=== PATIENT | female | born 1950 | race Caucasian/White ===

== ENCOUNTER 2018-03-15 08:32 | Inpatient (IN) | payer MEDICARE ==
[2018-03-15] MEDS ORDERED: NS 0.9% 1000 ML* 1,000 ML IV ONE (09:23)
[2018-03-15] MEDS ORDERED: Morphine VIAL* 10 MG/ML 1 ML VIAL IV ONE (09:23)
[2018-03-15] MEDS ORDERED: Ondansetron INJ* 2 MG/ML VIAL IV ONE (09:23)
[2018-03-15 09:48] LABS: ABS Basophils 0.1 10^3/ul (0-0.2); ABS Eosinophils 0.1 10^3/ul (0-0.6); ABS Lymphocytes 1.8 10^3/ul (1.0-4.8); ABS Monocytes 0.7 10^3/ul (0-0.8); ABS Nucleated RBC 0 10^3/ul; Eosinophil % 0.5 % (0-6); Hematocrit 40 % (35-47); Hemoglobin 13.5 g/dl (12.0-16.0); Lymphocyte % 13.2 % (25-47); Mean Corpuscular HGB Conc 34 g/dl (31-36); Mean Corpuscular Hemoglobin 30 pg (27-31); Mean Corpuscular Volume 87 fL (80-97); Mean Platelet Volume 8.8 um3 (7.4-10.4); Nucleated Red Blood Cells % 0; Platelet Count 251 10^3/ul (150-450); Red Blood Count 4.53 10^6/ul (4.00-5.40); Red Cell Distribution Width 13 % (10.5-15); White Blood Count 13.6 10^3/ul (3.5-10.8)
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
[2018-03-15 10:01] LABS: INR 0.98 (0.77-1.02)
[2018-03-15 10:09] LABS: EGFR Non-African American 59.4 (>60)
[2018-03-15] MEDS ORDERED: LORazepam INJ* 2 MG/ML 1 ML VIAL IV PUSH ONE (10:36)
[2018-03-15] MEDS ORDERED: Ketorolac INJ* 30 MG/ML 1 ML VIAL IV PUSH ONE (10:36)
[2018-03-15 11:09] LABS: Urine Appearance Clear; Urine Blood 2+ (Negative); Urine Color Amber; Urine Ketones Trace (Negative); Urine Protein 1+(30 mg/dL) (Negative); Urine Red Blood Cell 2+(6-10/hpf) (Absent); Urine Specific Gravity 1.023 (1.010-1.030); Urine Urobilinogen Negative (Negative); Urine White Blood Cell Trace(0-5/hpf) (Absent)
[2018-03-15] MEDS ORDERED: Iodixanol* (CONTRAST) 320 MG/ML 100 ML SDV IV ONE (11:59)
--- NOTE | 2018-03-15 13:42 | RAD ---
INDICATION: 67-year-old with right lower quadrant pain COMPARISON: None TECHNIQUE: Axial source images were obtained from the hemidiaphragms to the symphysis pubis following administration of oral and intravenous contrast. 88 mL Visipaque 320 was utilized. Coronal and sagittal reconstructed images were acquired. Lung bases: There is minor bibasal atelectasis. Liver: The liver is normal in size. There are no masses. There may be minor intrahepatic ductal dilatation. Suggest correlation with liver enzymes. Gallbladder: There are no calcified gallstones. There is no evidence of wall thickening or pericholecystic fluid. Spleen: The spleen is normal in size. There are no masses. Pancreas: There is no focal pancreatic mass or ductal dilatation. Adrenal glands: There is no evidence of adrenal mass. Kidneys: The kidneys are normal in size and position. There are prompt nephrograms and there is prompt excretion bilaterally. There are no renal parenchymal masses. There is no evidence of nephrolithiasis. Adenopathy: There is no evidence of adenopathy by size criteria. Fluid collections: There are no free or localized fluid collections. Vessels:There are no significant atherosclerotic changes involving the aorta. There is no focal aneurysm. The iliac vessels are normal in caliber. The IVC appears normal. GI tract: There is a small hiatal hernia. The upper GI tract is otherwise unremarkable. The terminal ileum appears normal. There is mild thickening of the cecal tip. The appendix is visualized and appears normal. There are scant diverticula of the right colon. There is minor mural thickening of the descending colon. There is moderate mural thickening of the sigmoid colon with moderate diverticula and minor perienteric inflammatory change consistent with acute diverticulitis. There are no findings of obstruction or perforation Pelvic organs: The uterus and adnexa appear normal Bladder: There are no bladder masses. Abdominal and pelvic soft tissues: The extraperitoneal abdominal and pelvic soft tissues appear normal.. Osseous structures: There are no acute osseous findings. Other: There are surgical clips in the minor pelvis IMPRESSION: 1. MILD THICKENING OF THE CECAL TIP AND DESCENDING COLON MAY REFLECT CHRONIC CHANGE. MORE FOCAL AND MORE PROMINENT THICKENING OF THE SIGMOID COLON WITH NUMEROUS DIVERTICULA AND PERIENTERIC STRANDING ARE CONSISTENT WITH ACUTE DIVERTICULITIS. 2. SUSPECT MILD INTRAHEPATIC DUCTAL DILATATION. SUGGEST CORRELATION WITH LIVER ENZYMES.
--- NOTE | 2018-03-15 15:01 | RAD ---
INDICATION: Right pelvic pain COMPARISON: CT March 15, 2018 TECHNIQUE: Longitudinal and transverse transvaginal scans of the pelvis were obtained. FINDINGS: Uterus: The uterus is normal in size. There are no focal masses. The uterus measures 7.3 x 3.0 x 5.4 cm. Endometrial thickness: The endometrium is not thickened endometrial cavity is enlarged containing complex fluid Free fluid: There is no significant free fluid . Ovaries: Neither ovary is identified as a discrete structure. This could be related patient's age Other: None IMPRESSION: COMPLEX FLUID WITHIN THE ENDOMETRIAL CAVITY. CONSIDER SHORT-TERM FOLLOW-UP VERSUS GYNECOLOGIC REFERRAL TO REASSESS.
[2018-03-15] MEDS ORDERED: NS 0.9% 1000 ML*IV.FLUID IV ONE (15:50)
[2018-03-15] MEDS ORDERED: metroNIDAZOLE IV 500 MG/100ML* 500 MG/100 ML BAG IVPB ONE (15:51)
[2018-03-15] MEDS ORDERED: cefTRIAXone(*) 1 GM in NS 0.9% 50 ML* 50 ML IVPB ONE (15:51)
[2018-03-15] MEDS ORDERED: Piperacillin/Tazobac ADVAN(*) 3.375 GM in NS 0.9% 100 ML* 100 ML IVPB ONE ×2 (15:52→16:48)
[2018-03-15] MEDS ORDERED: Morphine INJ* 2 MG/ML 1 ML SYRINGE (TWO MG - NEW SYRINGE VERSION) IV PRN (16:48)
[2018-03-15] MEDS ORDERED: Albuterol HFA INHALER* 8 gm MDI INH PRN (16:51)
[2018-03-15] MEDS ORDERED: Zosyn per Pharmacy* NOTE FOLLOW UP SCH (17:00)
--- NOTE | 2018-03-15 17:12 | RAD ---
Indication: Fever. Abdominal pain. Comparison: CT abdomen of the same date. Technique: Upright AP 1655 hours Report: Elevated lung volumes and both diffuse mild prominence of the interstitial markings and patchy rarefaction of the mid to upper lung zone interstitial markings. Minimal linear atelectasis at the RIGHT lung base corresponding with the CT finding. No focal pulmonary lesion, compelling alveolar consolidation to raise concern for pneumonia, pleural effusion, pneumothorax. Upper normal heart size. Unremarkable central pulmonary vasculature and mediastinal contours. IMPRESSION: #. Stigmata of obstructive lung disease. #. Minimal RIGHT basilar linear atelectasis. #. No evidence for pneumonia.
[2018-03-15] MEDS ORDERED: traMADol TAB* 50 MG PO PRN (19:34)
[2018-03-15] MEDS: Acetaminophen TAB* 325 MG PO PRN (19:41)
--- NOTE | 2018-03-15 19:41 | HP ---
CC: Dr. Valiente; Dr. Diaz * HISTORY AND PHYSICAL: DATE OF ADMISSION: 03/15/18 ATTENDING PHYSICIAN: Dr. Jara. * (DICTATED BY CHRISTIANO MILLER NP) CHIEF COMPLAINT: 1. Abdominal pain. 2. Fevers. HISTORY OF PRESENT ILLNESS: Ms. Ruvalcaba is a 67-year-old female patient who carries a history of hypertension, PTSD. She has a history of arrhythmia, she is unsure what type; history of anxiety, depression, asthma, history of chronic pain. She comes into our ER today with complaints of abdominal discomfort. She says about 4 to 5 weeks ago she was diagnosed with diverticulitis. She has never had a colonoscopy, never had an endoscopy. She says that she was started on Cipro and Flagyl. She has been having diarrhea intermittently with this. She says the Flagyl she was not tolerating it well. She said she also was having dark tarry stools, but after stopping the Flagyl, this went away. She says that she has been having intermittent abdominal cramping that has been getting much worse over the last several days. She says the pain now is mostly more on the right side. She denies any vaginal discharge. She says that she was concerned because she was having diarrhea, she was going every half an hour. She says her appetite has been diminished. She has been feeling nauseous. She has been having lower abdominal cramping. She says the pain is much worse on the right side today. She did have a little bit of blood in her stool today as well. She says the pain comes and goes. She says she has had a decreased appetite. She has had sweats and chills the last couple days and just has not been feeling very well. She describes it as a cramping type discomfort. She came into the ED today. She was evaluated. CAT scan did show diverticulitis, but there was also inflammation near the cecum. The patient was going to be discharged and then she spiked a fever of 102 and because of this, we were asked to evaluate for admission. She denies any chest pain. Denies any shortness of breath at this point. She says she has not been coughing. She does state that she has not had any recent sick contacts. PAST MEDICAL HISTORY: Significant for: 1. Hypertension. 2. PTSD. 3. Arrhythmia. 4. Anxiety. 5. Depression. 6. Asthma. 7. Chronic pain. PAST SURGICAL HISTORY: She has had arthroscopies to her shoulders only. HOME MEDICATIONS: Include: 1. EMLA cream 1 application topically b.i.d. to the affected area. 2. Zebeta 5 mg p.o. b.i.d. 3. Norvasc 2.5 mg daily. 4. Trazodone 50 to 100 mg p.o. at bedtime. 5. Ventolin 2 puffs every 4 to 6 hours as needed. 6. Ultram 50 mg every 8 hours as needed. 7. Metronidazole 500 mg p.o. every 8 hours. 8. Cipro 500 mg p.o. b.i.d. These were going to be her discharge meds from the ED. ALLERGIES TO MEDICATIONS: Include DOXYCYCLINE, ERYTHROMYCIN, LISINOPRIL, SULFA , VALSARTAN, POTASSIUM SORBATE, SODIUM PHOSPHATE. FAMILY HISTORY: Mother had ovarian cancer. Father had a history of lung cancer. SOCIAL HISTORY: She does not smoke. She does not drink. Surrogate decision maker is her . REVIEW OF SYSTEMS: There is a documented fever here. She did admit to having chills. She denies having any double vision. There is no ear discharge. She denies having any rhinorrhea. There is no sore throat. No thyroid enlargement. No chest pain. No orthopnea, no nocturnal dyspnea. There is abdominal pain per my HPI. There was nausea, but no vomiting. There is no dysuria. There is no frequency. There is no seizure. There is loss of consciousness. No pruritus and no skin ulcerations. Review of 14 systems was completed, all others negative. PHYSICAL EXAMINATION GENERAL: At this time, Ms. Ruvalcaba is a 67-year-old female patient. She is sitting in the ED stretcher. She does not appear to be in any acute distress. VITAL SIGNS: Blood pressure 160/94, pulse 103, respirations 18, O2 sat 96%, temperature 102.1. HEENT: Head: Atraumatic and normocephalic. Eyes: EOMs are intact. Sclerae anicteric and not pale. Throat: Oral mucosa appears to be moist. No oropharyngeal erythema. NECK: Supple. LUNGS: Clear to auscultation bilaterally. No wheezes, rales, or rhonchi. HEART: Sounds S1, S2. Regular rate and rhythm. She is tachycardic. ABDOMEN: Soft. It was flat, but there is tenderness in the right lower quadrant. She does have rebound tenderness. No guarding. She is a little tender in the left lower quadrant, but more so on the right in my opinion right lower. She does have relief when bending her knee on the left leg. In addition to this, when she dorsiflexes against my hand the lower extremities, I am able to reproduce the pain in her right side. Bowel sounds were present. EXTREMITIES: Pulses were 2+ throughout. She had no peripheral edema. She is able to move all 4 extremities with 5/5 strength. NEUROLOGICAL: She is awake, alert, and oriented x3. Tongue midline. Wire Mill Operator were equal. No gross focal deficits. SKIN: Grossly intact. DIAGNOSTIC STUDIES/LAB DATA: WBC of 13.6, RBC of 4.53, hemoglobin of 13.5, hematocrit of 40, platelet count of 251. INR of 0.98. Sodium 139, potassium 3.8, chloride of 105, bicarb 27, BUN 10, creatinine of 0.94, glucose 109, lactate 0.9, calcium 9.6, mag 2.1. Total bili 0.7, AST 17, ALT 12, alk phos 32. CRP 15. Lipase normal. Urine showed 1+ protein, trace ketones, 2+ blood, 2 + rbc's. She had a transvaginal ultrasound obtained today, which showed impression: Complex fluid within the endometrial cavity, consider short-term followup versus gynecological referral to reassess. Abdominal and pelvis CT, impression: Mild thickening of the cecal tip and descending colon, which may reflect chronic change, more focal and more prominent thickening of the sigmoid colon with numerous diverticula and periaortic stranding consistent with acute diverticulitis, suspect mild intrahepatic ductal dilatation, suggest correlation with liver enzymes. Old medical records were reviewed. ASSESSMENT AND PLAN: Ms. Ruvalcaba is a 67-year-old female patient coming into the ED today with complaints of abdominal pain. She was going to be discharged with a diagnosis of acute diverticulitis; however, the patient at discharge has spiked a fever of 102. We were asked to evaluate. She will be admitted under inpatient status for: 1. Abdominal pain. On clinical exam, I am concerned that her appendix could be acutely inflamed even though it is normal on CT. I did touch base with the surgeons. I have asked them to see this patient to weigh in on this. For the time being, she is n.p.o. I will place her on fluids. She certainly is septic. She got a lactic acid, blood cultures, antibiotics and fluids, which have all been started. At this point, she is otherwise hemodynamically stable. She is not hypotensive and she is not tachypneic. The plan will be to go ahead and treat aggressively with broad-spectrum antibiotics and touch base with General Surgery. If they feel this is not an acute appendicitis, then I would probably consider getting a GI consult on this patient given the history of diverticulitis and the fact that she has had some bleeding with this. She is going to need a scope at some point. 2. Complex fluid in the endometrium. At this point, we are getting General Surgery evaluation. After they touch base, we consider touching base with OB/ SULF[employer] PLANT OPERATOR. 3. Hypertension. Continue meds as prescribed. 4. Posttraumatic stress disorder, depression and anxiety. Continue supportive care. 5. Asthma. I have ordered p.r.n. albuterol. 6. History of arrhythmia. I am going to get records from Dr. iDaz's office, but I do not have previous EKGs for comparison. 7. Chronic pain. Continue meds as prescribed. 8. DVT prophylaxis: I have ordered heparin subcu. 9. Code status: She is a full code. 10. Fluids, electrolytes and nutrition: She will be n.p.o. TIME SPENT: Time spent on admission was 60 minutes, greater than half the time was spent [id number] with the patient obtaining my history and physical, other half of the time was spent going over the plan of care with the patient and implementing the plan of care. I did discuss the plan of care with my attending, Dr. Jara; she is in agreement. CHRISTIANO MILLER, [place]FIN[place] [id number]/[facility] #: [id number] MTDD
[2018-03-15] MEDS ORDERED: ZOSYN 3.375 GM Q8H per EXTENDED INFUSION IVPB SCH ×2 (20:30)
[2018-03-15] MEDS: traZODone TAB* 50 MG TAB PO SCH (21:51)
[2018-03-15] MEDS: Bisoprolol TAB* 5 MG PO SCH (21:51)
[2018-03-15] MEDS: Heparin VIAL(*) 5000 UNITS/ML VIAL (FIVE THOUSAND) SUBCUT SCH (21:55)
[2018-03-15] MEDS: Vancomycin CAP* 125 MG CAP PO SCH (21:55)
[2018-03-15] MEDS ORDERED: methylPREDNISolone 125 MG* 2 ML VIAL IV ONE (22:14)
[2018-03-15] MEDS ORDERED: diPHENhydraMINE IV* 50 MG in NS 0.9% 50 ML* 50 ML IVPB ONE (22:14)
[2018-03-15] MEDS ORDERED: Famotidine IV* 10 MG/ML 2 ML (20 mg) IV SLOW PU ONE (22:14)
[2018-03-15] MEDS ORDERED: diPHENhydraMINE IV* 50 MG/ML 1 ml VIAL (BENADRYL) SLOW PUSH ONE (22:14)
--- NOTE | 2018-03-15 22:25 | PN ---
Hospitalist Progress Note Date of Service: 03/15/18 called to bedside for patient complaints of tight throat in setting of zosyn infusion. Patient received one dose in ed. With this dose after infusion noted face flushed and redness to neck. Pt states throat tight. No hives or itching reported. no stidor lungs cta. ? allergic reaction will d/c ordered solumederol, and pepcic and benadryl, prior to meds being administered patient states that throat is better and no tightness felt.
[2018-03-16] MEDS: NS 0.9% 1000 ML* 1,000 ML IV SCH ×3 (03:02→23:42)
[2018-03-16] MEDS: Acetaminophen TAB* 325 MG PO PRN ×2 (06:02→11:37)
[2018-03-16] MEDS: Heparin VIAL(*) 5000 UNITS/ML VIAL (FIVE THOUSAND) SUBCUT SCH ×3 (06:03→21:44)
[2018-03-16 06:14] LABS: ABS Basophils 0 10^3/ul (0-0.2); ABS Eosinophils 0 10^3/ul (0-0.6); ABS Lymphocytes 0.7 10^3/ul (1.0-4.8); ABS Monocytes 0.2 10^3/ul (0-0.8); ABS Nucleated RBC 0 10^3/ul; Eosinophil % 0 % (0-6); Hematocrit 38 % (35-47); Hemoglobin 12.8 g/dl (12.0-16.0); Lymphocyte % 4.2 % (25-47); Mean Corpuscular HGB Conc 34 g/dl (31-36); Mean Corpuscular Hemoglobin 30 pg (27-31); Mean Corpuscular Volume 88 fL (80-97); Mean Platelet Volume 8.9 um3 (7.4-10.4); Nucleated Red Blood Cells % 0; Platelet Count 220 10^3/ul (150-450); Red Blood Count 4.27 10^6/ul (4.00-5.40); Red Cell Distribution Width 13 % (10.5-15); White Blood Count 16.9 10^3/ul (3.5-10.8)
[2018-03-16 06:23] LABS: INR 1.1 (0.77-1.02)
[2018-03-16 06:34] LABS: EGFR Non-African American 67.6 (>60)
[2018-03-16] MEDS: amLODIPine TAB* 5 MG PO SCH (07:51)
[2018-03-16] MEDS: Bisoprolol TAB* 5 MG PO SCH ×2 (07:51→20:51)
[2018-03-16] MEDS: Cefepime 1 GM in Dextrose(*) 1 GM/50 ML BAG IV SCH ×2 (07:51→20:53)
[2018-03-16] MEDS: Vancomycin CAP* 125 MG CAP PO SCH ×4 (07:51→20:51)
[2018-03-16] MEDS: metroNIDAZOLE IV 500 MG/100ML* 500 MG/100 ML BAG IVPB SCH ×2 (08:38→17:03)
[2018-03-16] MEDS: Ondansetron INJ* 2 MG/ML VIAL IV PRN (08:41)
[2018-03-16] MEDS ORDERED: Pneumococcal *Vac Polyvalent 0.5 ML VIAL IM ONE (09:00)
--- NOTE | 2018-03-16 13:22 | PN ---
Progress Note - Progress Note Date of Service: 03/16/18 SOAP: Subjective: Pt seen and examined. Chart reviewed. stool positive for C.diff Pt has some appetite. Continued RLQ and LUQ pain Objective: Temp Pulse Resp BP Pulse Ox 98.4 F 83 18 138/58 96 03/16/18 11:31 03/16/18 11:31 03/16/18 11:31 03/16/18 11:31 03/16/18 11:31 Intake & Output 03/15/18 03/16/18 03/16/18 22:59 06:59 14:59 Intake Total 158 1036 0 Output Total 500 300 800 Balance -342 736 -800 Weight 154 lb abdo: soft/ ND/ less tender today. No diffuse rebound. focal peritoneal signs at RLQ labs noted wbc remains elevated Assessment: refractory diverticulitis, possible complicated now with C diff colitis. No surgical intervention at this time Plan: abx bowel rest for 1 more day serial exams SACMA to cover me until 03/21
--- NOTE | 2018-03-16 14:52 | PN ---
Subjective Date of Service: 03/16/18 Interval History: Patient is having persistent abdominal pain. Patient is having persistent bowel movements without blood. Denies CP, SOB, N/V, dysuria, frequency, urgency. Patient has had visible blood in her urine for 9 months, was scheduled for cystoscopy soon with urology. Patient states that she previously had a mass on her kidney but that it "didn't look like cancer" at the time. Patient has been having low grade fevers for 9 months with mild weight loss. No easy bruising or night sweats. Patient states that she get easily exhausted. Patient denies any vaginal bleeding but has not followed with an OBGYN and has not had a PAP smear. Family History: Unchanged from Admission Social History: Unchanged from Admission Past Medical History: Unchanged from Admission Objective Active Medications: Acetaminophen (Tylenol Tab*) 650 mg PO Q4H PRN PRN Reason: FEVER/PAIN Last Admin: 03/16/18 11:37 Dose: 650 mg Albuterol (Ventolin Hfa Inhaler*) 2 puff INH Q4H PRN PRN Reason: SHORTNESS OF BREATH Amlodipine Besylate (Norvasc Tab*) 2.5 mg PO DAILY [facility] Last Admin: 03/16/18 07:51 Dose: 2.5 mg Bisoprolol Fumarate (Zebeta Tab*) 5 mg PO BID [facility] Last Admin: 03/16/18 07:51 Dose: 5 mg Heparin Sodium (Porcine) (Heparin Vial(*)) 5,000 units SUBCUT Q8HR [facility] Last Admin: 03/16/18 14:07 Dose: 5,000 units Sodium Chloride (Ns 0.9% 1000 Ml*) 1,000 mls @ 125 mls/hr IV PER RATE [facility] Last Admin: 03/16/18 12:51 Dose: 125 mls/hr Cefepime HCl (Maxipime 1 Gm In Dextrose Duplex (*)) 1 gm in 50 mls @ 100 mls/ hr IV Q12H [facility] Last Admin: 03/16/18 07:51 Dose: 100 mls/hr Metronidazole/Sodium Chloride (Flagyl 500 Mg Ivpb*) 500 mg in 100 mls @ 100 mls /hr IVPB Q8H [facility] Last Admin: 03/16/18 08:38 Dose: 100 mls/hr Ondansetron HCl (Zofran Inj*) 4 mg IV Q6H PRN PRN Reason: NAUSEA Last Admin: 03/16/18 08:41 Dose: 4 mg Trazodone HCl (Desyrel Tab*) 50 mg PO BEDTIME [facility] Last Admin: 03/15/18 21:51 Dose: 50 mg Vancomycin HCl (Vancomycin Cap*) 125 mg PO QID [facility] Last Admin: 03/16/18 12:50 Dose: 125 mg Vital Signs - 8 hr 03/16/18 03/16/18 03/16/18 07:34 07:51 11:31 Temperature 98.8 F 98.4 F Pulse Rate 89 83 Respiratory 18 18 18 Rate Blood Pressure 132/55 138/58 (mmHg) O2 Sat by Pulse 96 96 Oximetry Oxygen Devices in Use Now: None Appearance: Patient is a 67yo female who appears stated age and is sitting in the bed in [facility]. Eyes: No Scleral Icterus, PERRLA Ears/Nose/Mouth/Throat: NL Teeth, Lips, Gums, Clear Oropharnyx, Mucous Membranes Moist Neck: NL Appearance and Movements; NL JVP, Trachea Midline Respiratory: Symmetrical Chest Expansion and Respiratory Effort, Clear to Auscultation Cardiovascular: NL Sounds; No Murmurs; No JVD, RRR, No Edema Abdominal: No Hepatosplenomegaly, - - Mild tenderness to palpation in B/L Lower Quadrants. No rebound or guarding. Worst tenderness in RLQ around McBurney's point. Lymphatic: No Cervical Adenopathy Extremities: No Edema, No Clubbing, Cyanosis Skin: No Rash or Ulcers, No Nodules or Sclerosis Neurological: Alert and Oriented x 3, NL Sensation, NL Muscle Strength and Tone , - - CN II-XII intact. Result Diagrams: 03/16/18 06:00 03/16/18 06:00 Additional Lab and Data: Lab Results Microbiology and Other Data: Microbiology 03/15/18 16:10 Stool Gross Appearance - Final Stool Shiga Toxin I & II - Final Negative Shiga Toxin 1 & 2 C. difficile DNA Amplification - Final 027 Presumptive NEGATIVE Toxigenic C.diff POSITIVE Stool Lactoferrin - Final 03/15/18 10:43 Urine Culture - Final Urine 03/15/18 10:19 Aerobic Blood Culture - Preliminary Blood Venous No Growth Day 1 Anaerobic Blood Culture - Preliminary No Growth Day 1 03/15/18 09:39 Aerobic Blood Culture - Preliminary Blood Venous No Growth Day 1 Anaerobic Blood Culture - Preliminary No Growth Day 1 03/15/18 16:10 Stool Occult Blood (BRETT) - Final Stool Assess/Plan/Problems-Billing Assessment: Patient is a 67yo female with a PMH for PTSD, HTN, Anxiety, who has been having issues with hematuria, fatigue, weight loss, low grade fevers and had a recent diagnosis of diverticulitis which was incompletely treated with antibiotics and has been having frequent diarrhea and has a new diagnosis of C. Diff and possible recurrent diverticulitis as well and new finding of uterine mass and cecal thickening. - Patient Problems (1) Abdominal pain Current Visit: Yes Status: Acute Code(s): R10.9 - UNSPECIFIED ABDOMINAL PAIN SNOMED Code(s): 89891967 Comment: Likely multifactorial. Recent diverticulitis with incomplete treatment with Cipro/Flagyl with signs of recurrent disease on CT abdomen. No surgery indicated. Continue Cefepime/Flagyl. Patient also has cecal thickening and has been having constitutional symptoms for 9 months. Concern for IBD. GI consult indicates this is not likely but patient warrants outpatient colonoscopy on approximately 6 weeks. Appreciate ID consult. Patient also has concerns for renal and uterine disease which may be contributing. Continue NPO and serial abdominal exams. (2) Hematuria Current Visit: Yes Status: Acute Code(s): R31.9 - HEMATURIA, UNSPECIFIED SNOMED Code(s): 80714779 Comment: Has been having consistent gross hematuria for 9 months. Was scheduled for cystoscopy today outpatient. Was told once that she had a renal mass on abdominal imaging which did not have concerning features for malignancy. Has had no vaginal bleeding, not likely due to vaginal blood contamination. Plan for cystoscopy outpatient when able. No signs of renal pathology on recent CT. (3) C. difficile colitis Current Visit: Yes Status: Acute Comment: With recent antibiotic use for diverticulitis. Positive for Leukocytosis, Fevers, Abdominal pain and frequent BMs. Continue Vancomycin PO. (4) Endometrial hyperplasia Current Visit: Yes Status: Acute Code(s): N85.00 - ENDOMETRIAL HYPERPLASIA, UNSPECIFIED SNOMED Code(s): 246306099 Comment: Patient has endometrial loculated fluid collection on TVUS. No vaginal bleeding. No pap-smears. No routine [facility] follow up. CA-125 and Beta-HCG sent to help clarify if patient might have endometrial cancer accounting for constitiutional symptoms. Will need endometrial biopsy outpatient. (5) PTSD (post-traumatic stress disorder) Current Visit: Yes Status: Acute Code(s): F43.10 - POST-TRAUMATIC STRESS DISORDER, UNSPECIFIED SNOMED Code(s): 26956529 Comment: Patient has an aversion to medical care and only routinely follows with PCP With associated Anxiety and Depression. Contiue Ativan PRN and trazodone. (6) Anxiety Current Visit: Yes Status: Acute Code(s): F41.9 - ANXIETY DISORDER, UNSPECIFIED SNOMED Code(s): 96466958 Comment: Lorazepam PRN. Exacerbated by hospital setting. (7) HTN (hypertension) Current Visit: Yes Status: Acute Code(s): I10 - ESSENTIAL (PRIMARY) HYPERTENSION SNOMED Code(s): 13356706 Comment: Normotensive. Continue Bisoprolol and Amlodipine. (8) Asthma Current Visit: Yes Status: Acute Code(s): J45.909 - UNSPECIFIED ASTHMA, UNCOMPLICATED SNOMED Code(s): 050532089 Comment: No exacerbation, Albuterol PRN. (9) DVT prophylaxis Current Visit: Yes Status: Acute Code(s): GWM8468 - SNOMED Code(s): 983485859 Comment: Heparin SubQ. (10) Full code status Current Visit: Yes Status: Acute Code(s): Z78.9 - OTHER SPECIFIED HEALTH STATUS SNOMED Code(s): 840084254 Status and Disposition: Inpatient.
[2018-03-16] MEDS: LORazepam TAB(*) 0.5 MG PO PRN (15:05)
--- NOTE | 2018-03-16 16:28 | CONS ---
CC: Dr. Renetta Lewis; [facility] SURGICAL CONSULTATION REPORT: DATE OF CONSULT: 03/15/18 HISTORY OF PRESENT ILLNESS: I was contacted by the hospitalist service to evaluate Ms. Ruvalcaba, a 67-year-old female admitted to the emergency room to the hospitalist service with a diagnosis of diverticulitis. The patient presented after sent from her primary care physician for evaluation in the emergency room for persistent lower abdominal pain. The patient had been diagnosed with diverticulitis on CT scan approximately 1 month ago through her primary care doctor's office. She was started on ciprofloxacin and Flagyl. The patient had GI upset with Flagyl and stopped this on day 6. She continued the ciprofloxacin for almost 2 weeks to its completion. According to the patient, she never felt any better from the onset of the pain, but she continued with discomfort until today when she presented to her primary care doctor's. She was also complaining of low grade fever along with decreased appetite. The patient denies any similar symptoms in the past. The patient has had some loose bowel movements. She does complain of some burping and again decreased appetite. At some point, there was a concern of possible small bowel obstruction that was followed up with an x-ray through her primary care doctor's office. In the emergency room today, she underwent a CT scan of the abdomen and pelvis. These images were reviewed. It was consistent with diverticulitis along with some inflammation in the ascending colon and cecum. She was for planned discharge from the emergency room on antibiotics, but had spiked a fever of 102 , and was changed to admission. PAST MEDICAL HISTORY: The patient has a past medical history of hypertension, anxiety, depression, asthma. PAST SURGICAL HISTORY: Tubal ligation, bilateral shoulder surgery, tonsillectomy and adenectomy. MEDICATION LIST: Reviewed. ALLERGIES: List reviewed. SOCIAL HISTORY: She is a nonsmoker. Denied any IV drug abuse. She is retired. FAMILY HISTORY: Noncontributory. No history of diverticulitis or appendicitis. REVIEW OF SYSTEMS: Fevers and chills as described above. No significant weight loss or weight gain. Shortness of breath and diagnosis of asthma. History of reflux that has been treated with Prilosec at times. Abdominal complaints as described. The patient has never had a colonoscopy. The patient denies dysuria or pneumaturia, but describes a history of hematuria that was observed with a plan for referral to Urology. This is placed on hold due to patient's abdominal complaints and diverticulitis. She denies any endocrine disorders. History of vertigo. No psychiatric illnesses. No bleeding or clotting disorders. PHYSICAL EXAM: T-max 102.1, vital signs are stable. She is alert and oriented x3. No apparent distress. Head, Ears, Eyes, Nose, and Throat: Normocephalic and atraumatic. Sclerae are anicteric. Mucous membranes are dry. Neck: No lymphadenopathy. Abdomen: Soft, minimally distended, tender on deep palpation at the suprapubic area in the right lower quadrant. Negative guarding. No hernias. Rectal exam deferred. Extremities: Within normal limits. DIAGNOSTIC STUDIES/LAB DATA: White count 13.6 with no left shift. Chemistry panel reviewed, with mildly elevated CRP of 14. CT scan review shows diverticular disease with some inflammation, no right lower quadrant inflammatory process to suggest appendicitis. No abscess, bladder contour is intact. No sign of obstruction. IMPRESSION: Refractory diverticulitis in a patient who has been struggling with lower abdominal pain for close to 1 month. RECOMMENDATIONS: My recommendations are admission, IV antibiotics, bowel rest, serial abdominal exams, close followup. Discussed this with Frederick Ojeda of the hospitalist service. We will follow closely. The patient will require colonoscopy at one point in the future and likely cystoscopy. Overall, 45 minutes was spent with the patient going over her course and going over plan of care. [id number]/[facility] #: [id number] AMEENA
--- NOTE | 2018-03-16 17:17 | CONS ---
CONSULTATION REPORT: DATE OF CONSULT: 03/16/18 REQUESTING PROVIDER: Frederick Ojeda NP. CONSULTING SERVICE: Infectious Disease. REASON FOR CONSULTATION: C. difficile test positive. IMPRESSION: 1. Recent antibiotic use for presumed diverticulitis and with a few days of worsening, diffuse abdominal pain and frequent watery, mucusy stools taken together as if Clostridium difficile colitis and diarrhea. 2. Four to six weeks of right lower quadrant pain, worse with movement and diagnosed sigmoid diverticulitis on a CT scan initially, which was seen here; however, she has no left lower quadrant symptoms and so I think with the mild inflammation of the cecum on the CT here, inflammatory bowel disease is a consideration. Her appendix is apparently well visualized and appears normal. 3. Six months of low-grade fever, anorexia with baseline formed stools during that time, question of it is related to the right lower quadrant process versus she does have a fluid collection in the uterus on transvaginal ultrasound. RECOMMENDATION: We will add a stool culture. Cefepime and Flagyl while sorting out what else is going on in her colon. She can continue oral vancomycin for C. difficile; if not making progress, we could consider GI consultation. HISTORY OF PRESENT ILLNESS: This is a 67-year-old woman who has had 6 months of low-grade fevers and chills and a month of loose stools and right lower quadrant pain, which has been fairly severe and worsening. Initially, CT scan showed sigmoid diverticulitis when done at [facility]. She was prescribed Cipro and Flagyl, could not tolerate the Flagyl, but took Cipro for 10 days or so. She had no change in her symptoms of right lower quadrant pain and then about 3 to 4 days ago, developed severe frequent watery stools that was every half hour to an hour including overnight with diffuse abdominal pain and worsening fevers. She has had about 4-pound weight loss in the last month. Has not been eating much in the last 2 to 3 days or drinking much. Has never had anything like this in the past. She has noticed from time to time some black stools and some blood on the paper that was a streak of mucus. PAST MEDICAL HISTORY: 1. Hypertension. 2. Posttraumatic stress disorder. 3. Anxiety. 4. Arrhythmia. 5. Depression. 6. Asthma. 7. Chronic pain. 8. Status post shoulder arthroscopy. 9. Status post tubal ligation. MEDICATIONS: 1. Tylenol. 2. Amlodipine. 3. Bisoprolol. 4. Heparin subcutaneous injection. 5. Cefepime 1 g every 12 hours. 6. Flagyl 500 mg every 8 hours. 7. Zofran as needed. 8. Trazodone as needed. 9. Vancomycin 125 mg by mouth 4 times a day. ALLERGIES: DOXYCYCLINE, ERYTHROMYCIN, LISINOPRIL, SULFA, VALSARTAN, POTASSIUM, and SODIUM PHOSPHATE. FAMILY HISTORY: No inflammatory bowel. Her mother had ovarian cancer. Father had lung cancer. SOCIAL HISTORY: Nonsmoker, nondrinker. She lives with her in [facility]. She is here with her daughter. REVIEW OF SYSTEMS: All negative to a 14-point review of systems except as noted above in the history of present illness. PHYSICAL EXAM: Vital Signs: Temperature 37, heart rate 90, respiratory rate 18 , blood pressure 132/55, oxygen saturation 96% on room air. In general, she is awake and not in distress. Neurologic: She is oriented x3. Follows all commands. HEENT: There is no thrush or oral ulcers. Neck: Supple without mass. Heart: Regular rate and rhythm without murmurs, rubs, or gallops. Lungs : Clear to auscultation bilaterally. Abdomen: She has bowel sounds present. She has right lower quadrant tenderness to deep palpation, which is also worse with releasing palpation. No distant rebound. She has no pain with juggling in the bed. She is more comfortable with her knees and hips flexed and is sitting that way. Skin: There are no rashes or splinter hemorrhages. LABORATORY DATA: White blood cell count 16, hemoglobin 12, and platelets 220. Creatinine is 0.8. CRP was 14 yesterday. ALT was 12, bilirubin 0.7. Please see impressions and recommendations outlined above. Thanks for asking me to see Ms. Ruvalcaba in consultation. [id number]/[facility] #: [id number] [facility]
--- NOTE | 2018-03-16 17:50 | CONS ---
CC: Dr. Jara; Frederick Ojeda NP; Felicity Blanco DO * GASTROENTEROLOGY CONSULTATION: DATE OF CONSULT: March 16, 2018 HOSPITAL PROVIDER: Dr. Jara. REASON FOR CONSULT: Diverticulitis with superimposed C. diff colitis. HISTORY OF PRESENT ILLNESS: Ms. Ruvalcaba is a pleasant 67-year-old female with a history of PTSD, anxiety, depression, chronic pain who presented to [facility] with severe abdominal pain. She was treated for diverticulitis approximately 1 month ago with antibiotics from her primary care physician. Initially, she felt better while on antibiotics, but then over the last few weeks, she has been complaining of low-grade temperature and worsening abdominal pain over the last few days. Her primary care doctor instructed her to come in to the emergency room for further evaluation. She was also having difficulty tolerating her antibiotics and admitted with a low appetite. She also was experiencing non-bloody diarrhea on admission to the emergency room. CT of the abdomen revealed acute diverticulitis in the sigmoid colon and some thickening in the cecum. Surgical services were consulted for further evaluation and are currently recommending medical management. Upon further testing, the patient was noted to be positive for C. diff as well. She states she feels slightly better since admission to the emergency room, but still complains of right lower quadrant pain and left lower quadrant pain. She has been switched over from Flagyl to vancomycin due to complicated diverticulitis with C. diff colitis. She is currently n.p.o. for bowel rest. She had a reaction to Zosyn and thus is on Cefepime for now. Gastroenterology was consulted for further evaluation for possible IBD. She denies prior colonoscopy. She denies family history of gastrointestinal malignancies. Denies fevers, chills, chest pain, shortness of breath. She does admit to occasional GERD symptoms, but does not take medication on a regular basis for it. She denies dysphagia, hematochezia as well as melena. She states she has a regular bowel movement daily prior to last month before becoming ill. PAST MEDICAL HISTORY: 1. PTSD. 2. Anxiety. 3. Depression. 4. Hypertension. 5. Asthma. 6. Chronic pain. 7. Arrhythmia. PAST SURGICAL HISTORY: 1. She has had arthroscopies of her shoulders. 2. Denies previous colonoscopy and endoscopy. HOSPITAL MEDICATIONS: 1. Tylenol p.r.n. 2. Albuterol p.r.n. 3. Amlodipine. 4. Bisoprolol. 5. Cefepime. 6. Heparin subcutaneous. 7. Ativan. 8. Flagyl. 9. Zofran. 10. Trazodone. 11. Vancomycin. ALLERGIES: DOXYCYCLINE, ERYTHROMYCIN, LISINOPRIL, SULFA, VALSARTAN, POTASSIUM SORBATE, SODIUM PHOSPHATE. FAMILY HISTORY: She denies family history of gastrointestinal malignancies. Mother with ovarian cancer. Father had lung cancer. SOCIAL HISTORY: She denies tobacco, alcohol, illicit drug use. REVIEW OF SYSTEMS: Review of systems on a 14-point scale have been reviewed. All pertinent positives and negatives have been noted above in the HPI. PHYSICAL EXAMINATION: Vital Signs: Temperature 98.4, pulse 83, respirations 15 , oxygenation 96%, blood pressure 138/58. Generally, the patient is alert and oriented x3, answering questions appropriately, well nourished. HEENT: Normocephalic, atraumatic. Extraocular muscles intact. Anicteric sclerae bilaterally. Cardiovascular Exam: Regular rate and rhythm. Pulmonary Exam: Clear to auscultation bilaterally. Abdominal Exam: Positive bowel sounds, soft , nontender, mildly distended. No rebound, guarding, or rigidity. There is tenderness in the right lower quadrant, suprapubic area, left lower quadrant and left upper quadrant. No hepatosplenomegaly. Extremities: No clubbing, cyanosis, or edema. Neurological: No gross focal deficits are appreciated. LABORATORY AND DIAGNOSTICS: WBC 16.9, hemoglobin 12.8, hematocrit 38, platelets 220. INR 1.10. Sodium 140, potassium 3.5, chloride 108, CO2 22, anion gap 10. BUN 9, creatinine 0.84. Lactic acid 0.9. Calcium 8.6. Magnesium 2.1. Total bilirubin 0.70, AST 17, ALT 12, alkaline phosphatase 82. CRP 13.97. Total protein 7.4. Lipase 23. ASSESSMENT AND PLAN: Ms. Ruvalcaba is a pleasant 67-year-old with a history of posttraumatic stress disorder, anxiety, depression, hypertension, chronic pain who presented to [facility] with complaints of recurrent abdominal pain. Approximately 1 month ago, she was treated for diverticulitis and was given Cipro and Flagyl. Her symptoms improved initially, but returned shortly after with a low-grade fever. She began to experience severe abdominal pain as well as diarrhea couple days ago. Her primary care doctor recommended her to come to the emergency room. A repeat CT of the abdomen revealed sigmoid diverticulitis with cecal thickening. Further stool studies were performed while in the hospital due to fever and she was noted to be C. diff positive. She has been started on Vancomycin along with Flagyl due to complicated diverticulitis. Cefepime was started due to a reaction to Zosyn patient received initially on admission. She is currently feeling better, but still complaining of abdominal pain. She is n.p.o. Surgery is also board and recommending medical management for now. We will continue to maintain n.p.o. status with IV fluid hydration along with IV antibiotics given current abdominal pain. Due to patient's acute diverticulitis and active C.diff patient is not a candidate to assess for IBD via colonoscopy at this time as she would be high risk for perforation. Cecal thickening seen on CT may be related to her C.diff colitis, but IBD cannot be ruled out. The patient has never had a colonoscopy and will most definitely need a colonoscopy in 6 weeks after her colon has healed to further assess for colorectal carcinoma versus inflammatory bowel disease. She is in agreement with proceeding forward with a colonoscopy when deemed appropriate by Gastroenterology as an outpatient. Thank you, Dr. Jara and Frederick Ojeda NP for allowing us to participate in the care of your patient. If should have any further questions or concerns, please do not hesitate to contact us. [id number]/[facility] #: [id number] AMEENA
[2018-03-16] MEDS: traZODone TAB* 50 MG TAB PO SCH (20:52)
[2018-03-17] MEDS: metroNIDAZOLE IV 500 MG/100ML* 500 MG/100 ML BAG IVPB SCH ×3 (01:38→16:38)
[2018-03-17] MEDS: LORazepam TAB(*) 0.5 MG PO PRN (01:41)
[2018-03-17] MEDS: Heparin VIAL(*) 5000 UNITS/ML VIAL (FIVE THOUSAND) SUBCUT SCH ×3 (05:33→21:25)
[2018-03-17 06:40] LABS: ABS Basophils 0 10^3/ul (0-0.2); ABS Eosinophils 0 10^3/ul (0-0.6); ABS Lymphocytes 1.7 10^3/ul (1.0-4.8); ABS Monocytes 0.7 10^3/ul (0-0.8); ABS Neutrophils 10.9 10^3/ul (1.5-7.7); ABS Nucleated RBC 0 10^3/ul; Eosinophil % 0 % (0-6); Hematocrit 33 % (35-47); Hemoglobin 11.5 g/dl (12.0-16.0); Mean Corpuscular HGB Conc 35 g/dl (31-36); Mean Corpuscular Hemoglobin 30 pg (27-31); Mean Corpuscular Volume 86 fL (80-97); Mean Platelet Volume 9.2 um3 (7.4-10.4); Nucleated Red Blood Cells % 0; Platelet Count 201 10^3/ul (150-450); Red Cell Distribution Width 13 % (10.5-15); White Blood Count 13.3 10^3/ul (3.5-10.8)
[2018-03-17 06:57] LABS: EGFR Non-African American 72.6 (>60)
[2018-03-17] MEDS: NS 0.9% 1000 ML* 1,000 ML IV SCH (08:19)
[2018-03-17] MEDS: Cefepime 1 GM in Dextrose(*) 1 GM/50 ML BAG IV SCH (08:19)
[2018-03-17] MEDS: amLODIPine TAB* 5 MG PO SCH (08:20)
[2018-03-17] MEDS: Vancomycin CAP* 125 MG CAP PO SCH ×4 (08:20→21:25)
[2018-03-17] MEDS: Bisoprolol TAB* 5 MG PO SCH ×2 (08:20→21:24)
--- NOTE | 2018-03-17 12:19 | PN ---
Progress Note - Progress Note Date of Service: 03/17/18 Note: Surgery Progress: S: Feels somewhat better; i.e., less pain. States she had some blood in her urine this a.m. Some nausea, but only when she is up and moving; otherwise, she would like to drink. Stools are still loose, but less frequent. Also passing some flatus. Using only Tylenol for pain. O: Vital Signs - 8 hr 03/17/18 03/17/18 07:24 07:30 Temperature 99.4 F Pulse Rate 77 Respiratory 16 16 Rate Blood Pressure 125/57 (mmHg) O2 Sat by Pulse 97 Oximetry Intake and Output Last 24 Hours 03/15/18 03/16/18 03/17/18 03/18/18 06:59 06:59 06:59 06:59 Intake Total 2196 2385 Output Total 800 1350 Balance 1396 1035 Weight 154 lb Intake: IV Fluids 20375 ABX - CEFEPIME 55 Metronidazole 105 NS (0.9%) 986 1975 IVPB 58 150 ABX - CEFEPIME 50 ABX - ZOSYN 58 Metronidazole 100 Oral 100 100 Output: Urine 800 1350 Other: Estimated Void Medium Medium Date of Last Bowel 03/17/18 Movement # Bowel Movements 0 2 Estimated Stool Amount Medium Medium # Voids 1 Gen: WN; NAD Heart: reg Lungs: clear Abd: mild distended; +BS, though sl hypoactive; soft; mild to mod tenderness suprapubic area; remainder w/o sig tenderness Laboratory Tests 03/17/18 06:04 WBC 13.3 H Hgb 11.5 L A: diverticulitis; C diff colitis, improving P: should be ok to start clear liq diet; advance slowly; no indications for surgery at this point; cont IV abx and po Vanco as ordered.
[2018-03-17] MEDS: Acetaminophen TAB* 325 MG PO PRN (12:23)
[2018-03-17] MEDS ORDERED: Magnesium Sulfate 2 GM IV* 2 GM/50 ML BAG IVPB ONE (13:28)
[2018-03-17] MEDS ORDERED: traMADol TAB* 50 MG ONE (15:15)
[2018-03-17] MEDS: traMADol TAB* 50 MG PO PRN (15:18)
--- NOTE | 2018-03-17 15:37 | PN ---
Subjective Date of Service: 03/17/18 Interval History: Patient has continued moderate abdominal pain without change in pattern. Patient able to tolerate ice chips. Patient has no appetite and had a small amount of nausea this AM without vomiting. Patient has persistent hematuria. Patient denies CP, SOB, dysuria. Patient has persistent low grade temperature elevations. Family History: Unchanged from Admission Social History: Unchanged from Admission Past Medical History: Unchanged from Admission Objective Active Medications: Acetaminophen (Tylenol Tab*) 650 mg PO Q4H PRN PRN Reason: FEVER/PAIN Last Admin: 03/17/18 12:23 Dose: 650 mg Albuterol (Ventolin Hfa Inhaler*) 2 puff INH Q4H PRN PRN Reason: SHORTNESS OF BREATH Amlodipine Besylate (Norvasc Tab*) 2.5 mg PO DAILY [facility] Last Admin: 03/17/18 08:20 Dose: 2.5 mg Bisoprolol Fumarate (Zebeta Tab*) 5 mg PO BID [facility] Last Admin: 03/17/18 08:20 Dose: 5 mg Heparin Sodium (Porcine) (Heparin Vial(*)) 5,000 units SUBCUT Q8HR [facility] Last Admin: 03/17/18 13:44 Dose: 5,000 units Metronidazole/Sodium Chloride (Flagyl 500 Mg Ivpb*) 500 mg in 100 mls @ 100 mls /hr IVPB Q8H [facility] Last Admin: 03/17/18 09:56 Dose: 100 mls/hr Sodium Chloride (Ns 0.9% 1000 Ml*) 1,000 mls @ 75 mls/hr IV PER RATE [facility] Last Admin: 03/17/18 08:19 Dose: 75 mls/hr Ceftriaxone Sodium 1 gm/ (Sodium Chloride) 50 mls @ 200 mls/hr IVPB Q24H [facility] Lorazepam (Ativan Tab(*)) 0.5 mg PO Q4H PRN PRN Reason: ANXIETY Last Admin: 03/17/18 01:41 Dose: 0.5 mg Ondansetron HCl (Zofran Inj*) 4 mg IV Q6H PRN PRN Reason: NAUSEA Last Admin: 03/16/18 08:41 Dose: 4 mg Tramadol HCl (Ultram*) 50 mg PO Q8H PRN PRN Reason: PAIN Last Admin: 03/17/18 15:18 Dose: 50 mg Trazodone HCl (Desyrel Tab*) 50 mg PO BEDTIME [facility] Last Admin: 03/16/18 20:52 Dose: 50 mg Vancomycin HCl (Vancomycin Cap*) 125 mg PO QID [facility] Last Admin: 03/17/18 12:23 Dose: 125 mg Vital Signs - 8 hr 03/17/18 03/17/18 11:37 15:18 Temperature 99.3 F Pulse Rate 83 Respiratory 16 18 Rate Blood Pressure 133/56 (mmHg) O2 Sat by Pulse 96 Oximetry Oxygen Devices in Use Now: None Appearance: Patient is a 67yo female with a flat affect and is sitting in the bed in NAD. Eyes: No Scleral Icterus, PERRLA Ears/Nose/Mouth/Throat: NL Teeth, Lips, Gums, Clear Oropharnyx, Mucous Membranes Moist Neck: NL Appearance and Movements; NL JVP, Trachea Midline Respiratory: Symmetrical Chest Expansion and Respiratory Effort, Clear to Auscultation Cardiovascular: NL Sounds; No Murmurs; No JVD, RRR, No Edema Abdominal: No Hepatosplenomegaly, - - Diffuse tenderness to palpation. Worst in RLQ. Normoactive bowel sounds. Lymphatic: No Cervical Adenopathy Extremities: No Edema, No Clubbing, Cyanosis Skin: No Rash or Ulcers, No Nodules or Sclerosis Neurological: Alert and Oriented x 3, NL Sensation, NL Muscle Strength and Tone , - - CN II-XII intact. Result Diagrams: 03/17/18 06:04 03/17/18 06:08 Additional Lab and Data: Lab Results Microbiology and Other Data: Microbiology 03/15/18 16:10 Stool Gross Appearance - Final Stool Shiga Toxin I & II - Final Negative Shiga Toxin 1 & 2 C. difficile DNA Amplification - Final 027 Presumptive NEGATIVE Toxigenic C.diff POSITIVE Stool Lactoferrin - Final 03/15/18 10:43 Urine Culture - Final Urine 03/15/18 10:19 Aerobic Blood Culture - Preliminary Blood Venous No Growth Day 1 Anaerobic Blood Culture - Preliminary No Growth Day 1 03/15/18 09:39 Aerobic Blood Culture - Preliminary Blood Venous No Growth Day 1 Anaerobic Blood Culture - Preliminary No Growth Day 1 03/15/18 16:10 Stool Occult Blood (BRETT) - Final Stool Assess/Plan/Problems-Billing Assessment: Patient is a 67yo female with a PMH for PTSD, HTN, Anxiety, who has been having issues with hematuria, fatigue, weight loss, low grade fevers and had a recent diagnosis of diverticulitis which was incompletely treated with antibiotics and has been having frequent diarrhea and has a new diagnosis of C. Diff and possible recurrent diverticulitis as well and new finding of uterine mass and cecal thickening. - Patient Problems (1) Abdominal pain Current Visit: Yes Status: Acute Code(s): R10.9 - UNSPECIFIED ABDOMINAL PAIN SNOMED Code(s): 60762594 Comment: Likely multifactorial. Recent diverticulitis with incomplete treatment with Cipro/Flagyl with signs of recurrent disease on CT abdomen. No surgery indicated. Change to Ceftriaxone/Flagyl Patient also has cecal thickening and has been having constitutional symptoms for 9 months. Concern for IBD. GI consult indicates this is not likely but patient warrants outpatient colonoscopy on approximately 6 weeks. Also concern for possible colon cancer. Appreciate ID consult. Patient also has concerns for renal and uterine disease which may be contributing. Advance to clears and advance as tolerated. (2) Hematuria Current Visit: Yes Status: Acute Code(s): R31.9 - HEMATURIA, UNSPECIFIED SNOMED Code(s): 92098398 Comment: Has been having consistent gross hematuria for 9 months. Was scheduled for cystoscopy today outpatient. Was told once that she had a renal mass on abdominal imaging which did not have concerning features for malignancy. Has had no vaginal bleeding, not likely due to vaginal blood contamination. Plan for cystoscopy outpatient when able. No signs of renal pathology on recent CT. (3) C. difficile colitis Current Visit: Yes Status: Acute Comment: With recent antibiotic use for diverticulitis. Positive for Leukocytosis, Fevers, Abdominal pain and frequent BMs. Continue Vancomycin PO. Frequency of bowel movements improving. (4) Endometrial hyperplasia Current Visit: Yes Status: Acute Code(s): N85.00 - ENDOMETRIAL HYPERPLASIA, UNSPECIFIED SNOMED Code(s): 605545266 Comment: Patient has endometrial loculated fluid collection on TVUS. No vaginal bleeding. No pap-smears. No routine LOAD BLOCKER follow up. CA-125 normal Beta-HCG sent to help clarify if patient might have endometrial cancer accounting for constitiutional symptoms. Will need endometrial biopsy outpatient. (5) PTSD (post-traumatic stress disorder) Current Visit: Yes Status: Acute Code(s): F43.10 - POST-TRAUMATIC STRESS DISORDER, UNSPECIFIED SNOMED Code(s): 98673838 Comment: Patient has an aversion to medical care and only routinely follows with PCP With associated Anxiety and Depression. Contiue Ativan PRN and trazodone. (6) Anxiety Current Visit: Yes Status: Acute Code(s): F41.9 - ANXIETY DISORDER, UNSPECIFIED SNOMED Code(s): 95935926 Comment: Lorazepam PRN. Exacerbated by hospital setting. (7) HTN (hypertension) Current Visit: Yes Status: Acute Code(s): I10 - ESSENTIAL (PRIMARY) HYPERTENSION SNOMED Code(s): 52107291 Comment: Normotensive. Continue Bisoprolol and Amlodipine. (8) Asthma Current Visit: Yes Status: Acute Code(s): J45.909 - UNSPECIFIED ASTHMA, UNCOMPLICATED SNOMED Code(s): 348374217 Comment: No exacerbation, Albuterol PRN. (9) DVT prophylaxis Current Visit: Yes Status: Acute Code(s): DEG5079 - SNOMED Code(s): 552520192 Comment: Heparin SubQ. (10) Full code status Current Visit: Yes Status: Acute Code(s): Z78.9 - OTHER SPECIFIED HEALTH STATUS SNOMED Code(s): 776052548 Status and Disposition: Inpatient.
[2018-03-17] MEDS: traZODone TAB* 50 MG TAB PO SCH (21:24)
[2018-03-17] MEDS: Ondansetron INJ* 2 MG/ML VIAL IV PRN (22:09)
--- NOTE | 2018-03-17 22:18 | PN ---
Progress Note - Progress Note Date of Service: 03/17/18 - Gastroenterology Note: Patient seen and examined this afternoon. Overall feels better. Had abdominal pain after drinking water. Kept NPO. Frequency of diarrhea is improving. No appetite. Vital Signs: Temp Pulse Resp BP Pulse Ox 99.0 F 67 18 148/78 96 03/17/18 19:47 03/17/18 19:47 03/17/18 21:29 03/17/18 19:47 03/17/18 19:47 Physical Examination: General: NAD. AAOx3. Abdomen: +BS, Soft, NT/ND. Laboratory Results - last 24 hr 03/17/18 03/17/18 06:04 06:08 WBC 13.3 H RBC 3.80 L Hgb 11.5 L Hct 33 L MCV 86 MCH 30 MCHC 35 RDW 13 Plt Count 201 MPV 9.2 Neut % (Auto) 81.7 Lymph % (Auto) 13.0 L [place] % (Auto) 5.1 Eos % (Auto) 0 Baso % (Auto) 0.2 Absolute Neuts (auto) 10.9 H Absolute Lymphs (auto) 1.7 Absolute Monos (auto) 0.7 Absolute Eos (auto) 0 Absolute Basos (auto) 0 Absolute Nucleated RBC 0 Nucleated RBC % 0 Sodium 140 Potassium 3.5 Chloride 110 Carbon Dioxide 24 Anion Gap 6 BUN 14 Creatinine 0.79 Est GFR ( Amer) 87.8 Est GFR (Non-Af Amer) 72.6 BUN/Creatinine Ratio 17.7 Glucose 104 H Calcium 8.6 Magnesium 1.8 L A/P: 67 yo presented with abdominal pain and found to have refractory diverticulitis superimposed with C.diff colitis. CT revealed cecal thickening along with sigmoid diverticulitis. On Vancomycin, Flagyl and Cefepime. NPO for bowel rest. Surgery on board as well. 1. Abdominal pain secondary to refractory diverticulitis ~Improving slowly. ~On Vancomycin, Flagyl and Cefepime. ~NPO. ~Will need a colonoscopy in 6 weeks to r/o colorectal carcinoma and IBD. 2. Diarrhea secondary to C.diff colitis ~Improving. ~On Vancomycin and Flagyl. Please call with questions or concerns. Felicity Blanco D.O.
[2018-03-18] MEDS: metroNIDAZOLE IV 500 MG/100ML* 500 MG/100 ML BAG IVPB SCH ×3 (00:47→17:46)
[2018-03-18] MEDS ORDERED: PROCHLORPERAZINE INJ 5 MG/ML 2 ML VIAL ONE (01:22)
[2018-03-18] MEDS: PROCHLORPERAZINE INJ 5 MG/ML 2 ML VIAL IV PRN (01:26)
[2018-03-18] MEDS: Heparin VIAL(*) 5000 UNITS/ML VIAL (FIVE THOUSAND) SUBCUT SCH ×3 (05:45→20:27)
[2018-03-18 06:23] LABS: ABS Basophils 0 10^3/ul (0-0.2); ABS Eosinophils 0.1 10^3/ul (0-0.6); ABS Lymphocytes 2.1 10^3/ul (1.0-4.8); ABS Monocytes 0.5 10^3/ul (0-0.8); ABS Neutrophils 6.8 10^3/ul (1.5-7.7); ABS Nucleated RBC 0 10^3/ul; Eosinophil % 0.7 % (0-6); Hematocrit 36 % (35-47); Hemoglobin 12.4 g/dl (12.0-16.0); Lymphocyte % 21.8 % (25-47); Mean Corpuscular HGB Conc 35 g/dl (31-36); Mean Corpuscular Hemoglobin 30 pg (27-31); Mean Corpuscular Volume 86 fL (80-97); Mean Platelet Volume 9.1 um3 (7.4-10.4); Nucleated Red Blood Cells % 0; Platelet Count 217 10^3/ul (150-450); Red Blood Count 4.12 10^6/ul (4.00-5.40); Red Cell Distribution Width 13 % (10.5-15); White Blood Count 9.4 10^3/ul (3.5-10.8)
[2018-03-18 06:40] LABS: EGFR Non-African American 87.8 (>60)
[2018-03-18] MEDS: cefTRIAXone(*) 1 GM in NS 0.9% 50 ML* 50 ML IVPB SCH (07:37)
[2018-03-18] MEDS: NS 0.9% 1000 ML* 1,000 ML IV SCH (07:58)
[2018-03-18] MEDS: Bisoprolol TAB* 5 MG PO SCH ×2 (09:53→20:28)
[2018-03-18] MEDS: amLODIPine TAB* 5 MG PO SCH (09:53)
[2018-03-18] MEDS: Potassium Chlor TAB* 20 MEQ TAB.ER PO SCH ×2 (09:54→20:28)
[2018-03-18] MEDS: Vancomycin CAP* 125 MG CAP PO SCH ×4 (09:54→20:28)
[2018-03-18] MEDS: traMADol TAB* 50 MG PO PRN ×2 (10:00→20:28)
--- NOTE | 2018-03-18 11:48 | PN ---
Progress Note - Progress Note Date of Service: 03/18/18 SOAP: Subjective: She had weakness last pm and felt she might pass out. She is better today. No abdominal pain but notes diffuse mild tenderness. No N/V/D. Objective: Vital Signs Temp 98.9 F 03/18/18 07:29 Pulse 65 03/18/18 07:29 Resp 18 03/18/18 10:00 BP 122/55 03/18/18 07:29 Pulse Ox 96 03/18/18 07:29 Abd: mild distended; +BS, though sl hypoactive; soft; mild to mod tenderness in lower abdomen. No guarding or masses palpated. Intake & Output 03/17/18 03/18/18 03/18/18 18:59 06:59 18:59 Intake Total 1255 998 Output Total 800 1000 650 Balance 455 -2 -650 Intake: IV Fluids 975 998 NS (0.9%) 975 998 IVPB 280 NS (0.9%) 280 Oral 0 0 Output: Urine 800 1000 650 Other: Estimated Void Medium # Bowel Movements 0 # Voids 1 Laboratory Results - last 24 hr 03/18/18 03/18/18 05:34 05:34 WBC 9.4 RBC 4.12 Hgb 12.4 Hct 36 MCV 86 MCH 30 MCHC 35 RDW 13 Plt Count 217 MPV 9.1 Neut % (Auto) 72.0 Lymph % (Auto) 21.8 L [place] % (Auto) 5.2 Eos % (Auto) 0.7 Baso % (Auto) 0.3 Absolute Neuts (auto) 6.8 Absolute Lymphs (auto) 2.1 Absolute Monos (auto) 0.5 Absolute Eos (auto) 0.1 Absolute Basos (auto) 0 Absolute Nucleated RBC 0 Nucleated RBC % 0 Sodium 140 Potassium 3.3 L Chloride 105 Carbon Dioxide 26 Anion Gap 9 BUN 10 Creatinine 0.67 Est GFR ( Amer) 106.2 Est GFR (Non-Af Amer) 87.8 BUN/Creatinine Ratio 14.9 Glucose 72 Calcium 8.4 L Magnesium 2.1 Assessment: Diverticulitis; C diff colitis, improving with abx. Plan: No indications for surgery at this point; cont IV abx and po Vanco as ordered.
[2018-03-18] MEDS ORDERED: D5W NS 0.9% 40Meq KCL 1000 ML* 1,000 ML IV SCH (13:00)
--- NOTE | 2018-03-18 13:46 | PN ---
Progress Note - Progress Note Date of Service: 03/18/18 - Gastroenterology Note: Patient seen and examined this morning. Feeling overall better. Complaining of crampy abdominal pain. Thirsty. No fevers/chills. No bowel movement since yesterday afternoon. Vital Signs: Temp Pulse Resp BP Pulse Ox 98.9 F 65 18 122/55 96 03/18/18 07:29 03/18/18 07:29 03/18/18 12:43 03/18/18 07:29 03/18/18 07:29 Physical Examination: General: AAOx3. NAD. Abdomen: Soft, NT/ND, +hyperactive bowel sounds. Laboratory Results - last 24 hr 03/18/18 03/18/18 05:34 05:34 WBC 9.4 RBC 4.12 Hgb 12.4 Hct 36 MCV 86 MCH 30 MCHC 35 RDW 13 Plt Count 217 MPV 9.1 Neut % (Auto) 72.0 Lymph % (Auto) 21.8 L [place] % (Auto) 5.2 Eos % (Auto) 0.7 Baso % (Auto) 0.3 Absolute Neuts (auto) 6.8 Absolute Lymphs (auto) 2.1 Absolute Monos (auto) 0.5 Absolute Eos (auto) 0.1 Absolute Basos (auto) 0 Absolute Nucleated RBC 0 Nucleated RBC % 0 Sodium 140 Potassium 3.3 L Chloride 105 Carbon Dioxide 26 Anion Gap 9 BUN 10 Creatinine 0.67 Est GFR ( Amer) 106.2 Est GFR (Non-Af Amer) 87.8 BUN/Creatinine Ratio 14.9 Glucose 72 Calcium 8.4 L Magnesium 2.1 A/P: 67 yo presented with abdominal pain and found to have refractory diverticulitis superimposed with C.diff colitis. CT revealed cecal thickening along with sigmoid diverticulitis. On Vancomycin, Flagyl and Cefepime. 1. Abdominal pain secondary to refractory diverticulitis ~Improving slowly. ~On Vancomycin, Flagyl and Cefepime (due to reaction to Zosyn). ~Surgery advanced to clear liquids today. ~Will need a colonoscopy in 6 weeks to r/o colorectal carcinoma and IBD. 2. Diarrhea secondary to C.diff colitis ~Improving. ~On Vancomycin and Flagyl. Please call with questions or concerns. Felicity Blanco D.O.
[2018-03-18] MEDS: D5W 1/2 NS 40 Meq KCL 1000 ML* 1,000 ML IV SCH (15:24)
--- NOTE | 2018-03-18 16:20 | PN ---
Subjective Date of Service: 03/18/18 Interval History: Improvement in abdominal pain again today. Persistently low appetite. Had episodes of dizziness when walking to bathroom yesterday with nausea which resolved when she laid down again. No presyncope or chest pain. Patient denies CP, SOB, mild nausea, F/C, dysuria, or other pain. Patient's diarrhea has improved and she has not had a BM since yesterday. Family History: Unchanged from Admission Social History: Unchanged from Admission Past Medical History: Unchanged from Admission Objective Active Medications: Acetaminophen (Tylenol Tab*) 650 mg PO Q4H PRN PRN Reason: FEVER/PAIN Last Admin: 03/17/18 12:23 Dose: 650 mg Albuterol (Ventolin Hfa Inhaler*) 2 puff INH Q4H PRN PRN Reason: SHORTNESS OF BREATH Amlodipine Besylate (Norvasc Tab*) 2.5 mg PO DAILY [facility] Last Admin: 03/18/18 09:53 Dose: 2.5 mg Bisoprolol Fumarate (Zebeta Tab*) 5 mg PO BID [facility] Last Admin: 03/18/18 09:53 Dose: 5 mg Heparin Sodium (Porcine) (Heparin Vial(*)) 5,000 units SUBCUT Q8HR [facility] Last Admin: 03/18/18 14:04 Dose: 5,000 units Metronidazole/Sodium Chloride (Flagyl 500 Mg Ivpb*) 500 mg in 100 mls @ 100 mls /hr IVPB Q8H [facility] Last Admin: 03/18/18 09:53 Dose: 100 mls/hr Ceftriaxone Sodium 1 gm/ (Sodium Chloride) 50 mls @ 200 mls/hr IVPB Q24H [facility] Last Admin: 03/18/18 07:37 Dose: 200 mls/hr Potassium Chloride/Dextrose (D5w 1/2 Ns 40 Meq Kcl 1000 Ml*) 1,000 mls @ 75 mls /hr IV PER RATE [facility] Last Admin: 03/18/18 15:24 Dose: 75 mls/hr Lorazepam (Ativan Tab(*)) 0.5 mg PO Q4H PRN PRN Reason: ANXIETY Last Admin: 03/17/18 01:41 Dose: 0.5 mg Ondansetron HCl (Zofran Inj*) 4 mg IV Q6H PRN PRN Reason: NAUSEA Last Admin: 03/17/18 22:09 Dose: 4 mg Potassium Chloride (Klor Con Er Tab*) 20 meq PO BID [facility] Stop: 03/18/18 21:01 Last Admin: 03/18/18 09:54 Dose: 20 meq Prochlorperazine Edisylate (Compazine Inj*) 10 mg IV Q6H PRN PRN Reason: NAUSEA Last Admin: 03/18/18 01:26 Dose: 10 mg Tramadol HCl (Ultram*) 50 mg PO Q8H PRN PRN Reason: PAIN Last Admin: 03/18/18 10:00 Dose: 50 mg Trazodone HCl (Desyrel Tab*) 50 mg PO BEDTIME [facility] Last Admin: 03/17/18 21:24 Dose: 50 mg Vancomycin HCl (Vancomycin Cap*) 125 mg PO QID [facility] Last Admin: 03/18/18 14:04 Dose: 125 mg Vital Signs - 8 hr 03/18/18 03/18/18 03/18/18 08:22 10:00 12:43 Respiratory Rate Oxygen Devices in Use Now: None Appearance: Patient is a 67yo female who appears stated age and is sitting in the bed in [facility]. Eyes: No Scleral Icterus, PERRLA Ears/Nose/Mouth/Throat: NL Teeth, Lips, Gums, Clear Oropharnyx, Mucous Membranes Moist Neck: NL Appearance and Movements; NL JVP, Trachea Midline Respiratory: Symmetrical Chest Expansion and Respiratory Effort, Clear to Auscultation Cardiovascular: NL Sounds; No Murmurs; No JVD, RRR, No Edema Abdominal: No Hepatosplenomegaly, - - Slightly tender diffusely to palpation. Lymphatic: No Cervical Adenopathy Extremities: No Edema, No Clubbing, Cyanosis Skin: No Rash or Ulcers, No Nodules or Sclerosis Neurological: Alert and Oriented x 3, NL Sensation, NL Muscle Strength and Tone , - - CN II-XII intact. Result Diagrams: 03/18/18 05:34 03/18/18 05:34 Additional Lab and Data: Lab Results Microbiology and Other Data: Microbiology 03/15/18 16:10 Stool Gross Appearance - Final Stool Shiga Toxin I & II - Final Negative Shiga Toxin 1 & 2 C. difficile DNA Amplification - Final 027 Presumptive NEGATIVE Toxigenic C.diff POSITIVE Stool Lactoferrin - Final 03/15/18 10:43 Urine Culture - Final Urine 03/15/18 10:19 Aerobic Blood Culture - Preliminary Blood Venous No Growth Day 1 Anaerobic Blood Culture - Preliminary No Growth Day 1 03/15/18 09:39 Aerobic Blood Culture - Preliminary Blood Venous No Growth Day 1 Anaerobic Blood Culture - Preliminary No Growth Day 1 03/15/18 16:10 Stool Occult Blood (BRETT) - Final Stool Assess/Plan/Problems-Billing Assessment: Patient is a 67yo female with a PMH for PTSD, HTN, Anxiety, who has been having issues with hematuria, fatigue, weight loss, low grade fevers and had a recent diagnosis of diverticulitis which was incompletely treated with antibiotics and has been having frequent diarrhea and has a new diagnosis of C. Diff and possible recurrent diverticulitis as well and new finding of uterine mass and cecal thickening. - Patient Problems (1) Abdominal pain Current Visit: Yes Status: Acute Code(s): R10.9 - UNSPECIFIED ABDOMINAL PAIN SNOMED Code(s): 15002202 Comment: Likely multifactorial. Recent diverticulitis with incomplete treatment with Cipro/Flagyl with signs of recurrent disease on CT abdomen. No surgery indicated. Change to Ceftriaxone/Flagyl Patient also has cecal thickening and has been having constitutional symptoms for 9 months. Concern for IBD. GI consult indicates this is not likely but patient warrants outpatient colonoscopy on approximately 6 weeks. Also concern for possible colon cancer. Appreciate ID consult. Patient also has concerns for renal and uterine disease which may be contributing. Advance to clears and advance as tolerated. Persistent poor oral intake, continue fluids. (2) Hematuria Current Visit: Yes Status: Acute Code(s): R31.9 - HEMATURIA, UNSPECIFIED SNOMED Code(s): 93744299 Comment: Has been having consistent gross hematuria for 9 months. Was scheduled for cystoscopy today outpatient. Was told once that she had a renal mass on abdominal imaging which did not have concerning features for malignancy. Has had no vaginal bleeding, not likely due to vaginal blood contamination. Plan for cystoscopy outpatient when able. No signs of renal pathology on recent CT. (3) C. difficile colitis Current Visit: Yes Status: Acute Comment: With recent antibiotic use for diverticulitis. Positive for Leukocytosis, Fevers, Abdominal pain and frequent BMs. Continue Vancomycin PO. Frequency of bowel movements improving. (4) Endometrial hyperplasia Current Visit: Yes Status: Acute Code(s): N85.00 - ENDOMETRIAL HYPERPLASIA, UNSPECIFIED SNOMED Code(s): 940821908 Comment: Patient has endometrial loculated fluid collection on TVUS. No vaginal bleeding. No pap-smears. 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 CA-125 and Beta-HCG normal. Will need endometrial biopsy outpatient. (5) PTSD (post-traumatic stress disorder) Current Visit: Yes Status: Acute Code(s): F43.10 - POST-TRAUMATIC STRESS DISORDER, UNSPECIFIED SNOMED Code(s): 00911804 Comment: Patient has an aversion to medical care and only routinely follows with PCP With associated Anxiety and Depression. Contiue Ativan PRN and trazodone. (6) Anxiety Current Visit: Yes Status: Acute Code(s): F41.9 - ANXIETY DISORDER, UNSPECIFIED SNOMED Code(s): 17525117 Comment: Lorazepam PRN. Exacerbated by hospital setting. (7) HTN (hypertension) Current Visit: Yes Status: Acute Code(s): I10 - ESSENTIAL (PRIMARY) HYPERTENSION SNOMED Code(s): 57327212 Comment: Normotensive. Continue Bisoprolol and Amlodipine. (8) Asthma Current Visit: Yes Status: Acute Code(s): J45.909 - UNSPECIFIED ASTHMA, UNCOMPLICATED SNOMED Code(s): 889325095 Comment: No exacerbation, Albuterol PRN. (9) DVT prophylaxis Current Visit: Yes Status: Acute Code(s): NCP6195 - SNOMED Code(s): 374154990 Comment: Heparin SubQ. (10) Full code status Current Visit: Yes Status: Acute Code(s): Z78.9 - OTHER SPECIFIED HEALTH STATUS SNOMED Code(s): 868518518 Status and Disposition: Inpatient.
[2018-03-18] MEDS: traZODone TAB* 50 MG TAB PO SCH (20:28)
[2018-03-19] MEDS: metroNIDAZOLE IV 500 MG/100ML* 500 MG/100 ML BAG IVPB SCH ×3 (01:05→16:33)
[2018-03-19] MEDS: D5W 1/2 NS 40 Meq KCL 1000 ML* 1,000 ML IV SCH ×2 (05:53→22:12)
[2018-03-19] MEDS: Heparin VIAL(*) 5000 UNITS/ML VIAL (FIVE THOUSAND) SUBCUT SCH ×3 (05:54→20:27)
[2018-03-19 06:28] LABS: ABS Basophils 0 10^3/ul (0-0.2); ABS Eosinophils 0.1 10^3/ul (0-0.6); ABS Lymphocytes 2.5 10^3/ul (1.0-4.8); ABS Monocytes 0.6 10^3/ul (0-0.8); ABS Neutrophils 5.2 10^3/ul (1.5-7.7); ABS Nucleated RBC 0 10^3/ul; Eosinophil % 1.5 % (0-6); Hematocrit 38 % (35-47); Hemoglobin 13.4 g/dl (12.0-16.0); Lymphocyte % 29.7 % (25-47); Mean Corpuscular HGB Conc 35 g/dl (31-36); Mean Corpuscular Hemoglobin 30 pg (27-31); Mean Corpuscular Volume 86 fL (80-97); Mean Platelet Volume 8.9 um3 (7.4-10.4); Nucleated Red Blood Cells % 0; Platelet Count 255 10^3/ul (150-450); Red Blood Count 4.46 10^6/ul (4.00-5.40); Red Cell Distribution Width 13 % (10.5-15); White Blood Count 8.5 10^3/ul (3.5-10.8)
[2018-03-19 06:45] LABS: EGFR Non-African American 89.3 (>60)
[2018-03-19] MEDS: amLODIPine TAB* 5 MG PO SCH (08:05)
[2018-03-19] MEDS: Vancomycin CAP* 125 MG CAP PO SCH ×4 (08:05→20:27)
[2018-03-19] MEDS: cefTRIAXone(*) 1 GM in NS 0.9% 50 ML* 50 ML IVPB SCH (08:06)
[2018-03-19] MEDS: Bisoprolol TAB* 5 MG PO SCH ×2 (08:06→20:27)
[2018-03-19] MEDS: traMADol TAB* 50 MG PO PRN (08:12)
--- NOTE | 2018-03-19 08:47 | PN ---
Progress Note - Progress Note Date of Service: 03/19/18 SOAP: Subjective: She still has abdominal pain on L side and taking Tramadol for this and back. No BM but passing flatus. No appetite but tolerating some clears. Denies F/C; N/V. Objective: Vital Signs Temp 98.7 F 03/19/18 03:26 Pulse 64 03/19/18 03:26 Resp 18 03/19/18 08:12 BP 129/61 03/19/18 03:26 Pulse Ox 98 03/19/18 03:26 Gen: NAD Abd: ND, soft, mild tenderness LLQ. Intake & Output 03/18/18 03/19/18 03/19/18 18:59 06:59 18:59 Intake Total 1809 1535 Output Total 1300 1050 Balance 509 485 Intake: IV Fluids 1659 1425 D5W NS 40 meq KCL 1225 Metronidazole 200 NS (0.9%) 1659 IVPB 150 ABX - CEFEPIME 50 D5W 1/2 NS 40 meq KCL 0 Metronidazole 100 Oral 110 Output: Urine 1300 1050 Other: # Bowel Movements 0 Laboratory Results - last 24 hr 03/16/18 03/19/18 03/19/18 06:00 05:28 05:28 WBC 8.5 RBC 4.46 Hgb 13.4 Hct 38 MCV 86 MCH 30 MCHC 35 RDW 13 Plt Count 255 MPV 8.9 Neut % (Auto) 61.1 Lymph % (Auto) 29.7 [place] % (Auto) 7.3 H Eos % (Auto) 1.5 Baso % (Auto) 0.4 Absolute Neuts (auto) 5.2 Absolute Lymphs (auto) 2.5 Absolute Monos (auto) 0.6 Absolute Eos (auto) 0.1 Absolute Basos (auto) 0 Absolute Nucleated RBC 0 Nucleated RBC % 0 Sodium 136 Potassium 4.1 Chloride 105 Carbon Dioxide 25 Anion Gap 6 BUN 9 Creatinine 0.66 Est GFR ( Amer) 108.1 Est GFR (Non-Af Amer) 89.3 BUN/Creatinine Ratio 13.6 Glucose 98 Calcium 8.8 Magnesium 1.9 Total Bilirubin 0.30 AST 15 ALT 10 Alkaline Phosphatase 70 Total Protein 6.3 L Albumin 3.6 Globulin 2.7 Albumin/Globulin Ratio 1.3 Tumor Marker HCG 2.9 Assessment: Diverticulitis; C diff colitis, improving with abx. Plan: Cont abx. Clears.
[2018-03-19] MEDS: Acetaminophen TAB* 325 MG PO PRN ×2 (12:59→20:27)
--- NOTE | 2018-03-19 13:16 | PN ---
Progress Note - Progress Note Date of Service: 03/19/18 - Gastroenterology Note: Patient seen and examined. No new overnight issues. Abdominal pain slightly improved. No fevers/chills. No bowel movements over 24 hours. On clear liquids with mild cramping. Vital Signs: Temp Pulse Resp BP Pulse Ox 98.6 F 64 14 154/74 97 03/19/18 11:20 03/19/18 11:20 03/19/18 11:20 03/19/18 11:20 03/19/18 11:20 Physical examination: General: NAD. AAOx3. Less ill and pale-appearing. Abdomen: +BS x 4 quadrants. Soft. Mild ttp in lower quadrants. No R/G/R. Laboratory Results - last 24 hr 03/16/18 03/19/18 03/19/18 06:00 05:28 05:28 WBC 8.5 RBC 4.46 Hgb 13.4 Hct 38 MCV 86 MCH 30 MCHC 35 RDW 13 Plt Count 255 MPV 8.9 Neut % (Auto) 61.1 Lymph % (Auto) 29.7 [place] % (Auto) 7.3 H Eos % (Auto) 1.5 Baso % (Auto) 0.4 Absolute Neuts (auto) 5.2 Absolute Lymphs (auto) 2.5 Absolute Monos (auto) 0.6 Absolute Eos (auto) 0.1 Absolute Basos (auto) 0 Absolute Nucleated RBC 0 Nucleated RBC % 0 Sodium 136 Potassium 4.1 Chloride 105 Carbon Dioxide 25 Anion Gap 6 BUN 9 Creatinine 0.66 Est GFR ( Amer) 108.1 Est GFR (Non-Af Amer) 89.3 BUN/Creatinine Ratio 13.6 Glucose 98 Calcium 8.8 Magnesium 1.9 Total Bilirubin 0.30 AST 15 ALT 10 Alkaline Phosphatase 70 Total Protein 6.3 L Albumin 3.6 Globulin 2.7 Albumin/Globulin Ratio 1.3 Tumor Marker HCG 2.9 A/P: 67 yo presented with abdominal pain and found to have refractory diverticulitis superimposed with C.diff colitis. CT revealed thickening in the cecum and descending colon, sigmoid diverticulitis with questionable uterine mass. TVUS showed endometrial loculated fluid on TVUS. On Vancomycin, Flagyl and Cefepime. Slowing improving with antibiotics. 1. Abdominal pain secondary to refractory diverticulitis ~Improving. ~On Vancomycin, Flagyl and Cefepime (due to reaction to Zosyn). ~Surgery following and advanced to clear liquids. ~Will need a colonoscopy in 6 weeks to r/o colorectal carcinoma and less likely IBD. ~IBD panel pending. 2. Diarrhea secondary to C.diff colitis ~Improving. ~On Vancomycin and Flagyl. ~Thickening on CT in cecum and descending colon was likely from C.diff colitis and less likely IBD. ~Plan on colonoscopy in 6 weeks. ~Will need follow-up in GI office after discharge. Please call with questions or concerns. Felicity Blanco D.O.
--- NOTE | 2018-03-19 15:59 | PN ---
Subjective Date of Service: 03/19/18 Interval History: Patient feeling continuously better. No BM in 2 days. Decreased abdominal pain. Increased strength. No CP, SOB, N/V, F/C, dysuria, or other pain. Patient had a couple bites of a popsicle yesterday and it caused significant abdominal cramping. Was able to tolerate clears this AM. Family History: Unchanged from Admission Social History: Unchanged from Admission Past Medical History: Unchanged from Admission Objective Active Medications: Acetaminophen (Tylenol Tab*) 650 mg PO Q4H PRN PRN Reason: FEVER/PAIN Last Admin: 03/19/18 12:59 Dose: 650 mg Albuterol (Ventolin Hfa Inhaler*) 2 puff INH Q4H PRN PRN Reason: SHORTNESS OF BREATH Amlodipine Besylate (Norvasc Tab*) 2.5 mg PO DAILY [facility] Last Admin: 03/19/18 08:05 Dose: 2.5 mg Bisoprolol Fumarate (Zebeta Tab*) 5 mg PO BID [facility] Last Admin: 03/19/18 08:06 Dose: 5 mg Heparin Sodium (Porcine) (Heparin Vial(*)) 5,000 units SUBCUT Q8HR [facility] Last Admin: 03/19/18 13:00 Dose: 5,000 units Metronidazole/Sodium Chloride (Flagyl 500 Mg Ivpb*) 500 mg in 100 mls @ 100 mls /hr IVPB Q8H [facility] Last Admin: 03/19/18 09:39 Dose: 100 mls/hr Ceftriaxone Sodium 1 gm/ (Sodium Chloride) 50 mls @ 200 mls/hr IVPB Q24H [facility] Last Admin: 03/19/18 08:06 Dose: 200 mls/hr Potassium Chloride/Dextrose (D5w 1/2 Ns 40 Meq Kcl 1000 Ml*) 1,000 mls @ 75 mls /hr IV PER RATE [facility] Last Admin: 03/19/18 05:53 Dose: 75 mls/hr Lorazepam (Ativan Tab(*)) 0.5 mg PO Q4H PRN PRN Reason: ANXIETY Last Admin: 03/17/18 01:41 Dose: 0.5 mg Ondansetron HCl (Zofran Inj*) 4 mg IV Q6H PRN PRN Reason: NAUSEA Last Admin: 03/17/18 22:09 Dose: 4 mg Prochlorperazine Edisylate (Compazine Inj*) 10 mg IV Q6H PRN PRN Reason: NAUSEA Last Admin: 03/18/18 01:26 Dose: 10 mg Tramadol HCl (Ultram*) 50 mg PO Q8H PRN PRN Reason: PAIN Last Admin: 03/19/18 08:12 Dose: 50 mg Trazodone HCl (Desyrel Tab*) 50 mg PO BEDTIME [facility] Last Admin: 03/18/18 20:28 Dose: 50 mg Vancomycin HCl (Vancomycin Cap*) 125 mg PO QID [facility] Last Admin: 03/19/18 13:00 Dose: 125 mg Vital Signs - 8 hr 03/19/18 03/19/18 03/19/18 08:00 08:12 09:27 Temperature 99.1 F Pulse Rate 73 Respiratory 18 18 18 Rate Blood Pressure 136/58 (mmHg) O2 Sat by Pulse 97 Oximetry 03/19/18 03/19/18 11:05 11:20 Temperature 98.6 F Pulse Rate 64 Respiratory 18 14 Rate Blood Pressure 154/74 (mmHg) O2 Sat by Pulse 97 Oximetry Oxygen Devices in Use Now: None Appearance: Patient is a 67yo female who appears stated age and is sitting in the bed in [facility]. Eyes: No Scleral Icterus, PERRLA Ears/Nose/Mouth/Throat: NL Teeth, Lips, Gums, Clear Oropharnyx, Mucous Membranes Moist Neck: NL Appearance and Movements; NL JVP, Trachea Midline Respiratory: Symmetrical Chest Expansion and Respiratory Effort, Clear to Auscultation Cardiovascular: NL Sounds; No Murmurs; No JVD, RRR, No Edema Abdominal: No Hepatosplenomegaly, - - Slightly tender to palpation throughout. No rebound, guarding. Improved from previous exam. Lymphatic: No Cervical Adenopathy Extremities: No Edema, No Clubbing, Cyanosis Skin: No Rash or Ulcers, No Nodules or Sclerosis Neurological: Alert and Oriented x 3, NL Sensation, NL Muscle Strength and Tone , - - CN II-XII intact. Result Diagrams: 03/19/18 05:28 03/19/18 05:28 Additional Lab and Data: Lab Results Microbiology and Other Data: Microbiology 03/15/18 16:10 Stool Gross Appearance - Final Stool Shiga Toxin I & II - Final Negative Shiga Toxin 1 & 2 C. difficile DNA Amplification - Final 027 Presumptive NEGATIVE Toxigenic C.diff POSITIVE Stool Lactoferrin - Final 03/15/18 10:43 Urine Culture - Final Urine 03/15/18 10:19 Aerobic Blood Culture - Preliminary Blood Venous No Growth Day 1 Anaerobic Blood Culture - Preliminary No Growth Day 1 03/15/18 09:39 Aerobic Blood Culture - Preliminary Blood Venous No Growth Day 1 Anaerobic Blood Culture - Preliminary No Growth Day 1 03/15/18 16:10 Stool Occult Blood (BRETT) - Final Stool Assess/Plan/Problems-Billing Assessment: Patient is a 67yo female with a PMH for PTSD, HTN, Anxiety, who has been having issues with hematuria, fatigue, weight loss, low grade fevers and had a recent diagnosis of diverticulitis which was incompletely treated with antibiotics and has been having frequent diarrhea and has a new diagnosis of C. Diff and possible recurrent diverticulitis as well and new finding of uterine mass and cecal thickening. - Patient Problems (1) Abdominal pain Current Visit: Yes Status: Acute Code(s): R10.9 - UNSPECIFIED ABDOMINAL PAIN SNOMED Code(s): 73365284 Comment: Likely multifactorial. Recent diverticulitis with incomplete treatment with Cipro/Flagyl with signs of recurrent disease on CT abdomen. No surgery indicated. Change to Ceftriaxone/Flagyl Patient also has cecal thickening and has been having constitutional symptoms for 9 months. Concern for IBD. GI consult indicates this is not likely but patient warrants outpatient colonoscopy on approximately 6 weeks. Also concern for possible colon cancer. Appreciate ID consult. Patient also has concerns for renal and uterine disease which may be contributing. Advance to clears and advance as tolerated. Persistent poor oral intake but improving, continue fluids. (2) Hematuria Current Visit: Yes Status: Acute Code(s): R31.9 - HEMATURIA, UNSPECIFIED SNOMED Code(s): 62392415 Comment: Has been having consistent gross hematuria for 9 months. Was scheduled for cystoscopy today outpatient. Was told once that she had a renal mass on abdominal imaging which did not have concerning features for malignancy. Has had no vaginal bleeding, not likely due to vaginal blood contamination. Plan for cystoscopy outpatient when able. No signs of renal pathology on recent CT. (3) C. difficile colitis Current Visit: Yes Status: Acute Comment: With recent antibiotic use for diverticulitis. Positive for Leukocytosis, Fevers, Abdominal pain and frequent BMs. Continue Vancomycin PO. No BM in 2 days. (4) Endometrial hyperplasia Current Visit: Yes Status: Acute Code(s): N85.00 - ENDOMETRIAL HYPERPLASIA, UNSPECIFIED SNOMED Code(s): 716507757 Comment: Patient has endometrial loculated fluid collection on TVUS. No vaginal bleeding. No pap-smears. No routine STOCKKEEPER follow up. CA-125 and Beta-HCG normal. Will need endometrial biopsy outpatient. (5) PTSD (post-traumatic stress disorder) Current Visit: Yes Status: Acute Code(s): F43.10 - POST-TRAUMATIC STRESS DISORDER, UNSPECIFIED SNOMED Code(s): 21461460 Comment: Patient has an aversion to medical care and only routinely follows with PCP With associated Anxiety and Depression. Contiue Ativan PRN and trazodone. (6) Anxiety Current Visit: Yes Status: Acute Code(s): F41.9 - ANXIETY DISORDER, UNSPECIFIED SNOMED Code(s): 71647604 Comment: Lorazepam PRN. Exacerbated by hospital setting. (7) HTN (hypertension) Current Visit: Yes Status: Acute Code(s): I10 - ESSENTIAL (PRIMARY) HYPERTENSION SNOMED Code(s): 56322491 Comment: Normotensive. Continue Bisoprolol and Amlodipine. (8) Asthma Current Visit: Yes Status: Acute Code(s): J45.909 - UNSPECIFIED ASTHMA, UNCOMPLICATED SNOMED Code(s): 294705363 Comment: No exacerbation, Albuterol PRN. (9) DVT prophylaxis Current Visit: Yes Status: Acute Code(s): ODA8201 - SNOMED Code(s): 647088161 Comment: Heparin SubQ. (10) Full code status Current Visit: Yes Status: Acute Code(s): Z78.9 - OTHER SPECIFIED HEALTH STATUS SNOMED Code(s): 890710952 Status and Disposition: Inpatient.
[2018-03-19] MEDS: Ondansetron INJ* 2 MG/ML VIAL IV PRN (17:38)
[2018-03-19] MEDS: PROCHLORPERAZINE INJ 5 MG/ML 2 ML VIAL IV PRN (20:26)
[2018-03-19] MEDS: traZODone TAB* 50 MG TAB PO SCH (20:27)
[2018-03-20] MEDS: metroNIDAZOLE IV 500 MG/100ML* 500 MG/100 ML BAG IVPB SCH ×3 (00:30→17:28)
[2018-03-20] MEDS: traMADol TAB* 50 MG PO PRN ×2 (06:11→14:19)
[2018-03-20] MEDS: Heparin VIAL(*) 5000 UNITS/ML VIAL (FIVE THOUSAND) SUBCUT SCH ×3 (06:12→22:27)
[2018-03-20 06:22] LABS: EGFR Non-African American 89.3 (>60)
[2018-03-20] MEDS: cefTRIAXone(*) 1 GM in NS 0.9% 50 ML* 50 ML IVPB SCH (08:43)
[2018-03-20] MEDS: amLODIPine TAB* 5 MG PO SCH (08:49)
[2018-03-20] MEDS: Bisoprolol TAB* 5 MG PO SCH ×2 (08:49→20:57)
[2018-03-20] MEDS: Vancomycin CAP* 125 MG CAP PO SCH ×4 (08:49→20:58)
--- NOTE | 2018-03-20 09:25 | PN ---
Progress Note - Progress Note Date of Service: 03/20/18 SOAP: Subjective:not hungry,nina clears,no n/v;passing flatus;very small stool yesterday;intermittent LLQ crampy pain [] Objective:Afeb,VSS;Abd:hyperactive bs,soft,nondistended;mild tenderness LLQ;no guarding [] Assessment:less pain,doesn't want to advance diet [] Plan:continue clears;encourage ambulation;IV abx per Hosp []
[2018-03-20] MEDS: D5W 1/2 NS 40 Meq KCL 1000 ML* 1,000 ML IV SCH (14:26)
--- NOTE | 2018-03-20 16:01 | PN ---
Subjective Date of Service: 03/20/18 Interval History: Patient seen and examined at bedside. Denies fever, chills, shortness of breath , chest discomfort, N/V/D. Pt states that she has moved her bowels once today, she describes it as "soft". She continues to have a poor appetite, but would like to try mashed potatoes. Family History: Unchanged from Admission Social History: Unchanged from Admission Past Medical History: Unchanged from Admission Objective Active Medications: Acetaminophen (Tylenol Tab*) 650 mg PO Q4H PRN Reason: FEVER/PAIN Albuterol (Ventolin Hfa Inhaler*) 2 puff INH Q4H PRN Reason: SHORTNESS OF BREATH Amlodipine Besylate (Norvasc Tab*) 2.5 mg PO DAILY [facility] Bisoprolol Fumarate (Zebeta Tab*) 5 mg PO BID [facility] Heparin Sodium (Porcine) (Heparin Vial(*)) 5,000 units SUBCUT Q8HR [facility] Metronidazole/Sodium Chloride (Flagyl 500 Mg Ivpb*) 500 mg in 100 mls @ 100 mls /hr IVPB Q8H [facility] Ceftriaxone Sodium 1 gm/ (Sodium Chloride) 50 mls @ 200 mls/hr IVPB Q24H [facility] Potassium Chloride/Dextrose (D5w 1/2 Ns 40 Meq Kcl 1000 Ml*) 1,000 mls @ 75 mls /hr IV PER RATE [facility] Lorazepam (Ativan Tab(*)) 0.5 mg PO Q4H PRN Reason: ANXIETY Ondansetron HCl (Zofran Inj*) 4 mg IV Q6H PRN Reason: NAUSEA Prochlorperazine Edisylate (Compazine Inj*) 10 mg IV Q6H PRN Reason: NAUSEA Tramadol HCl (Ultram*) 50 mg PO Q8H PRN Reason: PAIN Trazodone HCl (Desyrel Tab*) 50 mg PO BEDTIME [facility] Vancomycin HCl (Vancomycin Cap*) 125 mg PO QID [facility] Vital Signs - 8 hr 03/20/18 03/20/18 03/20/18 08:05 08:30 11:03 Temperature 97.6 F Pulse Rate 76 Respiratory 16 16 16 Rate Blood Pressure 121/71 (mmHg) O2 Sat by Pulse 98 Oximetry 03/20/18 14:19 Temperature Pulse Rate Respiratory 16 Rate Blood Pressure (mmHg) O2 Sat by Pulse Oximetry Oxygen Devices in Use Now: None Appearance: NAD, sitting up in bed Ears/Nose/Mouth/Throat: Mucous Membranes Moist Respiratory: Symmetrical Chest Expansion and Respiratory Effort, Clear to Auscultation Cardiovascular: NL Sounds; No Murmurs; No JVD, RRR Abdominal: NL Sounds; No Tenderness; No Distention Extremities: No Edema Skin: No Rash or Ulcers Neurological: Alert and Oriented x 3, NL Muscle Strength and Tone Lines/Tubes/Other Access: Clean, Dry and Intact Peripheral IV - site benign Nutrition: Taking PO's Result Diagrams: 03/19/18 05:28 03/20/18 05:23 Additional Lab and Data: Microbiology and Other Data: Microbiology 03/15/18 16:10 Stool Gross Appearance - Final Stool Shiga Toxin I & II - Final Negative Shiga Toxin 1 & 2 C. difficile DNA Amplification - Final 027 Presumptive NEGATIVE Toxigenic C.diff POSITIVE Stool Lactoferrin - Final 03/15/18 10:43 Urine Culture - Final Urine 03/15/18 10:19 Aerobic Blood Culture - Preliminary Blood Venous No Growth Day 1 Anaerobic Blood Culture - Preliminary No Growth Day 1 03/15/18 09:39 Aerobic Blood Culture - Preliminary Blood Venous No Growth Day 1 Anaerobic Blood Culture - Preliminary No Growth Day 1 03/15/18 16:10 Stool Occult Blood (BRETT) - Final Stool Assess/Plan/Problems-Billing Assessment: Ms. Ruvalcaba is a 67yo female with a PMH for PTSD, HTN, Anxiety, who has been having issues with hematuria, fatigue, weight loss, low grade fevers and had a recent diagnosis of diverticulitis which was incompletely treated with antibiotics and has been having frequent diarrhea and has a new diagnosis of C. Diff and possible recurrent diverticulitis as well and new finding of uterine mass and cecal thickening. - Patient Problems (1) Abdominal pain Code(s): R10.9 - UNSPECIFIED ABDOMINAL PAIN SNOMED Code(s): 00717985 Comment: - Likely multifactorial. Recent diverticulitis with incomplete treatment with Cipro/Flagyl with signs of recurrent disease on CT abdomen - Patient also has cecal thickening and has been having constitutional symptoms for 9 months. Concern for IBD. GI consult indicates this is not likely but patient warrants outpatient colonoscopy on approximately 6 weeks. Also concern for possible colon cancer - Patient also has concerns for renal and uterine disease which may be contributing - Appreciate ID consult - Continue Ceftriaxone/Flagyl, advance diet as toelrated (2) Hematuria Code(s): R31.9 - HEMATURIA, UNSPECIFIED SNOMED Code(s): 77282737 Comment: - Has been having consistent gross hematuria for 9 months. Was scheduled for cystoscopy 03/16 outpatient - Was told once that she had a renal mass on abdominal imaging which did not have concerning features for malignancy - Has had no vaginal bleeding, not likely due to vaginal blood contamination - Plan for cystoscopy outpatient when able. No signs of renal pathology on recent CT (3) C. difficile colitis Comment: - Improving, no BM ~ 48 hours but then with loose stool today x1 - With recent antibiotic use for diverticulitis - Positive for Leukocytosis, Fevers, Abdominal pain and frequent BMs - Continue Vancomycin PO (4) Anxiety Code(s): F41.9 - ANXIETY DISORDER, UNSPECIFIED SNOMED Code(s): 65058811 Comment: - Exacerbated by hospital setting - Lorazepam PRN (5) Asthma Code(s): J45.909 - UNSPECIFIED ASTHMA, UNCOMPLICATED SNOMED Code(s): 099833035 Comment: - No signs of exacerbation - Continue Albuterol PRN (6) Endometrial hyperplasia Code(s): N85.00 - ENDOMETRIAL HYPERPLASIA, UNSPECIFIED SNOMED Code(s): 431854307 Comment: - Patient has endometrial loculated fluid collection on TVUS - No vaginal bleeding. No pap-smears or routine COLUMNIST follow up - CA-125 and Beta-HCG normal. - Will need endometrial biopsy outpatient (7) HTN (hypertension) Code(s): I10 - ESSENTIAL (PRIMARY) HYPERTENSION SNOMED Code(s): 28005659 Comment: - SBP 120-170's - Continue Bisoprolol and Amlodipine (8) PTSD (post-traumatic stress disorder) Code(s): F43.10 - POST-TRAUMATIC STRESS DISORDER, UNSPECIFIED SNOMED Code(s): 80735885 Comment: - Patient has an aversion to medical care and only routinely follows with PCP - With associated Anxiety and Depression - Contiue Ativan PRN and trazodone (9) DVT prophylaxis Code(s): UIS4199 - SNOMED Code(s): 629884881 Comment: - Heparin SubQ (10) Full code status Code(s): Z78.9 - OTHER SPECIFIED HEALTH STATUS SNOMED Code(s): 912047909 Status and Disposition: Inpatient. Discharge to home when medically stable.
[2018-03-20] MEDS: Ondansetron INJ* 2 MG/ML VIAL IV PRN (20:53)
[2018-03-20] MEDS: traZODone TAB* 50 MG TAB PO SCH (20:57)
[2018-03-21] MEDS: PROCHLORPERAZINE INJ 5 MG/ML 2 ML VIAL IV PRN (01:16)
[2018-03-21] MEDS: metroNIDAZOLE IV 500 MG/100ML* 500 MG/100 ML BAG IVPB SCH ×3 (01:19→16:23)
[2018-03-21] MEDS: Heparin VIAL(*) 5000 UNITS/ML VIAL (FIVE THOUSAND) SUBCUT SCH ×3 (05:54→22:05)
[2018-03-21] MEDS: D5W 1/2 NS 40 Meq KCL 1000 ML* 1,000 ML IV SCH (05:55)
[2018-03-21] MEDS: Vancomycin CAP* 125 MG CAP PO SCH ×4 (08:06→22:04)
[2018-03-21] MEDS: Bisoprolol TAB* 5 MG PO SCH ×2 (08:06→22:04)
[2018-03-21] MEDS: cefTRIAXone(*) 1 GM in NS 0.9% 50 ML* 50 ML IVPB SCH (08:06)
[2018-03-21] MEDS: amLODIPine TAB* 5 MG PO SCH (08:16)
[2018-03-21] MEDS: Acetaminophen TAB* 325 MG PO PRN ×3 (08:24→22:34)
--- NOTE | 2018-03-21 14:24 | PN ---
Progress Note - Progress Note Date of Service: 03/21/18 - Gastroenterology Note: Patient seen and examined. No new overnight issues. Tolerated tomato soup. No nausea/emesis. No abdominal pain. Had a watery bowel movement that was non- bloody. Vital Signs: Temp Pulse Resp BP Pulse Ox 98.1 F 72 18 121/55 98 03/21/18 11:19 03/21/18 11:19 03/21/18 11:19 03/21/18 11:19 03/21/18 11:19 Physical Examination: General: AAOx3. NAD. Abdomen: +BS. Soft. Nt/ND. Labs/Diagnostics: No new labs. A/P: 67 yo presented with abdominal pain and found to have refractory diverticulitis superimposed with C.diff colitis. CT revealed thickening in the cecum and descending colon, sigmoid diverticulitis with questionable uterine mass. TVUS showed endometrial loculated fluid. On Vancomycin, Flagyl and Cefepime. Slowing improving with antibiotics. 1. Abdominal pain secondary to refractory diverticulitis ~Improving. ~On Vancomycin, Flagyl and Cefepime (due to reaction to Zosyn). ~Surgery following and full liquids today. ~Will need a colonoscopy in 6 weeks to r/o colorectal carcinoma and IBD. ~IBD panel is pending. 2. Diarrhea secondary to C.diff colitis ~Improving. ~On Vancomycin and Flagyl. ~Thickening on CT in cecum and descending colon was likely from C.diff colitis. ~Plan on colonoscopy in 6 weeks. ~Will need follow-up in GI office after discharge. Please call with questions or concerns. Felicity Blanco D.O.
[2018-03-21] MEDS: traMADol TAB* 50 MG PO PRN (14:33)
--- NOTE | 2018-03-21 15:15 | PN ---
Subjective Date of Service: 03/21/18 Interval History: Patient seen and examined at bedside. Denies fever, chills, shortness of breath , chest discomfort, N/V/D. Pt states that she has been able to tolerate full liquids. Pt states that she would like mashed potatoes. She states that she feels like her knees are swollen and she is having pain with ambulation. She was encouraged to ambulate in the halls. Pt with soft stools today. Family History: Unchanged from Admission Social History: Unchanged from Admission Past Medical History: Unchanged from Admission Objective Active Medications: Acetaminophen (Tylenol Tab*) 650 mg PO Q4H PRN Reason: FEVER/PAIN Albuterol (Ventolin Hfa Inhaler*) 2 puff INH Q4H PRN Reason: SHORTNESS OF BREATH Amlodipine Besylate (Norvasc Tab*) 2.5 mg PO DAILY [facility] Bisoprolol Fumarate (Zebeta Tab*) 5 mg PO BID [facility] Heparin Sodium (Porcine) (Heparin Vial(*)) 5,000 units SUBCUT Q8HR [facility] Metronidazole/Sodium Chloride (Flagyl 500 Mg Ivpb*) 500 mg in 100 mls @ 100 mls /hr IVPB Q8H [facility] Ceftriaxone Sodium 1 gm/ (Sodium Chloride) 50 mls @ 200 mls/hr IVPB Q24H [facility] Potassium Chloride/Dextrose (D5w 1/2 Ns 40 Meq Kcl 1000 Ml*) 1,000 mls @ 75 mls /hr IV PER RATE [facility] Lorazepam (Ativan Tab(*)) 0.5 mg PO Q4H PRN Reason: ANXIETY Ondansetron HCl (Zofran Inj*) 4 mg IV Q6H PRN Reason: NAUSEA Prochlorperazine Edisylate (Compazine Inj*) 10 mg IV Q6H PRN Reason: NAUSEA Tramadol HCl (Ultram*) 50 mg PO Q8H PRN Reason: PAIN Trazodone HCl (Desyrel Tab*) 50 mg PO BEDTIME [facility] Vancomycin HCl (Vancomycin Cap*) 125 mg PO QID [facility] Vital Signs - 8 hr 03/21/18 03/21/18 03/21/18 07:24 08:00 11:19 Temperature 98.8 F 98.1 F Pulse Rate 79 72 Respiratory 15 15 18 Rate Blood Pressure 119/64 121/55 (mmHg) O2 Sat by Pulse 98 98 Oximetry 03/21/18 14:33 Temperature Pulse Rate Respiratory 16 Rate Blood Pressure (mmHg) O2 Sat by Pulse Oximetry Oxygen Devices in Use Now: None Appearance: NAD, sitting up in a chair Respiratory: Symmetrical Chest Expansion and Respiratory Effort, Clear to Auscultation Cardiovascular: NL Sounds; No Murmurs; No JVD, RRR Abdominal: NL Sounds; No Tenderness; No Distention Extremities: No Edema, - - Bilateral knees "large", no edema Skin: No Rash or Ulcers Neurological: Alert and Oriented x 3, NL Muscle Strength and Tone Lines/Tubes/Other Access: Clean, Dry and Intact Peripheral IV - site benign Nutrition: Taking PO's Result Diagrams: 03/19/18 05:28 03/20/18 05:23 Additional Lab and Data: Microbiology and Other Data: Microbiology 03/15/18 16:10 Stool Gross Appearance - Final Stool Shiga Toxin I & II - Final Negative Shiga Toxin 1 & 2 C. difficile DNA Amplification - Final 027 Presumptive NEGATIVE Toxigenic C.diff POSITIVE Stool Lactoferrin - Final 03/15/18 10:43 Urine Culture - Final Urine 03/15/18 10:19 Aerobic Blood Culture - Preliminary Blood Venous No Growth Day 1 Anaerobic Blood Culture - Preliminary No Growth Day 1 03/15/18 09:39 Aerobic Blood Culture - Preliminary Blood Venous No Growth Day 1 Anaerobic Blood Culture - Preliminary No Growth Day 1 03/15/18 16:10 Stool Occult Blood (BRETT) - Final Stool Assess/Plan/Problems-Billing Assessment: Ms. Ruvalcaba is a 67yo female with a PMH for PTSD, HTN, Anxiety, who has been having issues with hematuria, fatigue, weight loss, low grade fevers and had a recent diagnosis of diverticulitis which was incompletely treated with antibiotics and has been having frequent diarrhea and has a new diagnosis of C. Diff and possible recurrent diverticulitis as well and new finding of uterine mass and cecal thickening. - Patient Problems (1) Abdominal pain Code(s): R10.9 - UNSPECIFIED ABDOMINAL PAIN SNOMED Code(s): 34709858 Comment: - Likely multifactorial. Recent diverticulitis with incomplete treatment with Cipro/Flagyl with signs of recurrent disease on CT abdomen - Patient also has cecal thickening and has been having constitutional symptoms for 9 months. Concern for IBD, GI consult indicates this is not likely but patient warrants outpatient colonoscopy on approximately 6 weeks. Also concern for possible colon cancer - Patient also has concerns for renal and uterine disease which may be contributing - Appreciate ID, GI and surgical consult - Continue Ceftriaxone (reaction to Zosyn)/Flagyl, advance diet as tolerated (2) Hematuria Code(s): R31.9 - HEMATURIA, UNSPECIFIED SNOMED Code(s): 24737311 Comment: - Has been having consistent gross hematuria for 9 months. Was scheduled for cystoscopy 03/16 outpatient - Was told once that she had a renal mass on abdominal imaging which did not have concerning features for malignancy - Has had no vaginal bleeding, not likely due to vaginal blood contamination - Plan for cystoscopy outpatient when able. No signs of renal pathology on recent CT (3) C. difficile colitis Comment: - Resolving, afebrile and no leukocytosis - With recent antibiotic use for diverticulitis - Continue Vancomycin PO (4) Anxiety Code(s): F41.9 - ANXIETY DISORDER, UNSPECIFIED SNOMED Code(s): 46498989 Comment: - Exacerbated by hospital setting - Lorazepam PRN (5) Asthma Code(s): J45.909 - UNSPECIFIED ASTHMA, UNCOMPLICATED SNOMED Code(s): 554266337 Comment: - No signs of exacerbation - Continue Albuterol PRN (6) Endometrial hyperplasia Code(s): N85.00 - ENDOMETRIAL HYPERPLASIA, UNSPECIFIED SNOMED Code(s): 804431556 Comment: - Patient has endometrial loculated fluid collection on TVUS - No vaginal bleeding. No pap-smears or routine COMMUNICATIONS FIELD TECHNICIAN follow up - CA-125 and Beta-HCG normal. - Will need endometrial biopsy outpatient (7) HTN (hypertension) Code(s): I10 - ESSENTIAL (PRIMARY) HYPERTENSION SNOMED Code(s): 34270683 Comment: - SBP 110-120's - Continue Bisoprolol and Amlodipine (8) PTSD (post-traumatic stress disorder) Code(s): F43.10 - POST-TRAUMATIC STRESS DISORDER, UNSPECIFIED SNOMED Code(s): 22856730 Comment: - Patient has an aversion to medical care and only routinely follows with PCP - With associated Anxiety and Depression - Contiue Ativan PRN and trazodone (9) DVT prophylaxis Code(s): TFL9993 - SNOMED Code(s): 737046824 Comment: - Heparin SubQ (10) Full code status Code(s): Z78.9 - OTHER SPECIFIED HEALTH STATUS SNOMED Code(s): 293891230 Status and Disposition: Inpatient. Discharge to home when medically stable. Possible discharge in the AM.
[2018-03-21] MEDS: traZODone TAB* 50 MG TAB PO SCH (22:04)
[2018-03-22] MEDS: metroNIDAZOLE IV 500 MG/100ML* 500 MG/100 ML BAG IVPB SCH ×3 (01:00→17:30)
[2018-03-22] MEDS: Heparin VIAL(*) 5000 UNITS/ML VIAL (FIVE THOUSAND) SUBCUT SCH ×3 (06:18→21:10)
[2018-03-22] MEDS: amLODIPine TAB* 5 MG PO SCH (08:18)
[2018-03-22] MEDS: cefTRIAXone(*) 1 GM in NS 0.9% 50 ML* 50 ML IVPB SCH (08:18)
[2018-03-22] MEDS: traMADol TAB* 50 MG PO PRN (08:20)
[2018-03-22] MEDS: Bisoprolol TAB* 5 MG PO SCH ×2 (08:20→21:06)
[2018-03-22] MEDS: Vancomycin CAP* 125 MG CAP PO SCH ×4 (08:21→21:06)
[2018-03-22] MEDS: Acetaminophen TAB* 325 MG PO PRN ×2 (13:09→21:06)
--- NOTE | 2018-03-22 16:09 | PN ---
Progress Note - Progress Note Date of Service: 03/22/18 - Gastroenterology Note: Patient seen and examined. Tolerating soft diet. No bowel movements yesterday or today. No abdominal pain. No nausea/emesis. No fevers/chills. Tolerating physical therapy. Vital Signs: Temp Pulse Resp BP Pulse Ox 99.8 F 79 18 118/58 97 03/22/18 11:46 03/22/18 11:46 03/22/18 13:02 03/22/18 11:46 03/22/18 11:46 Physical Examination: General: NAD. CV: RRR. PULM: CTAB. Abdomen: Soft. NT/ND. +BS. EXT: Warm, B/L knee swelling (chronic) but no calf swelling or ttp. Laboratory Results - last 24 hr 03/20/18 05:23 Neutrophil-Specific Ab Negative S.cerevisiae IgG Ab 34.0 H S.cerevisiae IgA Ab 23.1 H A/P: 67 yo presented with abdominal pain and found to have refractory diverticulitis superimposed with C.diff colitis. CT revealed thickening in the cecum and descending colon, sigmoid diverticulitis with questionable uterine mass. TVUS showed endometrial loculated fluid. On Vancomycin, Flagyl and Cefepime. Improving with antibiotics. 1. Abdominal pain secondary to refractory diverticulitis ~Improving. ~On Vancomycin, Flagyl and Cefepime (due to reaction to Zosyn). ~Surgery following. Advanced to soft diet. ~Will need a colonoscopy in 6 weeks to r/o colorectal carcinoma and IBD. ~IBD panel is mildly positive which is non-specific. 2. Diarrhea secondary to C.diff colitis ~Improving. ~On Vancomycin and Flagyl. ~Thickening on CT in cecum and descending colon was likely from C.diff colitis. ~Plan on colonoscopy in 6 weeks. ~Will need follow-up in GI office after discharge. Please call with any questions or concerns. Felicity Blanco D.O.
--- NOTE | 2018-03-22 17:54 | PN ---
Subjective Date of Service: 03/22/18 Interval History: c/o feeling dizzy when sitting on the edge of the bed. reports that blood pressure dropped when sitting on the edge of the bed. c/o bilat knee pain, Denies abd pain, n/v/d. Denies fever or chills. Denies chest pain or shortness of breath Family History: Unchanged from Admission Social History: Unchanged from Admission Past Medical History: Unchanged from Admission Objective Active Medications: Acetaminophen (Tylenol Tab*) 650 mg PO Q4H PRN PRN Reason: FEVER/PAIN Last Admin: 03/22/18 13:09 Dose: 650 mg Albuterol (Ventolin Hfa Inhaler*) 2 puff INH Q4H PRN PRN Reason: SHORTNESS OF BREATH Amlodipine Besylate (Norvasc Tab*) 2.5 mg PO DAILY [facility] Last Admin: 03/22/18 08:18 Dose: 2.5 mg Bisoprolol Fumarate (Zebeta Tab*) 5 mg PO BID [facility] Last Admin: 03/22/18 08:20 Dose: 5 mg Heparin Sodium (Porcine) (Heparin Vial(*)) 5,000 units SUBCUT Q8HR [facility] Last Admin: 03/22/18 13:10 Dose: 5,000 units Metronidazole/Sodium Chloride (Flagyl 500 Mg Ivpb*) 500 mg in 100 mls @ 100 mls /hr IVPB Q8H [facility] Last Admin: 03/22/18 17:30 Dose: 100 mls/hr Ceftriaxone Sodium 1 gm/ (Sodium Chloride) 50 mls @ 200 mls/hr IVPB Q24H [facility] Last Admin: 03/22/18 08:18 Dose: 200 mls/hr Lorazepam (Ativan Tab(*)) 0.5 mg PO Q4H PRN PRN Reason: ANXIETY Last Admin: 03/17/18 01:41 Dose: 0.5 mg Ondansetron HCl (Zofran Inj*) 4 mg IV Q6H PRN PRN Reason: NAUSEA Last Admin: 03/20/18 20:53 Dose: 4 mg Prochlorperazine Edisylate (Compazine Inj*) 10 mg IV Q6H PRN PRN Reason: NAUSEA Last Admin: 03/21/18 01:16 Dose: 10 mg Tramadol HCl (Ultram*) 50 mg PO Q8H PRN PRN Reason: PAIN Last Admin: 03/22/18 08:20 Dose: 50 mg Trazodone HCl (Desyrel Tab*) 50 mg PO BEDTIME [facility] Last Admin: 03/21/18 22:04 Dose: 50 mg Vancomycin HCl (Vancomycin Cap*) 125 mg PO QID [facility] Last Admin: 03/22/18 17:31 Dose: 125 mg Vital Signs - 8 hr 03/22/18 03/22/18 11:46 13:02 Temperature 99.8 F Pulse Rate 79 Respiratory 16 18 Rate Blood Pressure 118/58 (mmHg) O2 Sat by Pulse 97 Oximetry Oxygen Devices in Use Now: None Appearance: appears comfortable resting in bed. no acute distress Eyes: No Scleral Icterus Ears/Nose/Mouth/Throat: Mucous Membranes Moist Neck: NL Appearance and Movements; NL JVP, Trachea Midline Respiratory: Symmetrical Chest Expansion and Respiratory Effort, Clear to Auscultation Cardiovascular: NL Sounds; No Murmurs; No JVD, No Edema Abdominal: NL Sounds; No Tenderness; No Distention Extremities: No Edema, No Clubbing, Cyanosis Skin: No Rash or Ulcers Neurological: Alert and Oriented x 3 Nutrition: Taking PO's - tolerating small amounts of soft foods Result Diagrams: 03/19/18 05:28 03/20/18 05:23 Additional Lab and Data: Microbiology and Other Data: Microbiology 03/15/18 16:10 Stool Gross Appearance - Final Stool Shiga Toxin I & II - Final Negative Shiga Toxin 1 & 2 C. difficile DNA Amplification - Final 027 Presumptive NEGATIVE Toxigenic C.diff POSITIVE Stool Lactoferrin - Final 03/15/18 10:43 Urine Culture - Final Urine 03/15/18 10:19 Aerobic Blood Culture - Preliminary Blood Venous No Growth Day 1 Anaerobic Blood Culture - Preliminary No Growth Day 1 03/15/18 09:39 Aerobic Blood Culture - Preliminary Blood Venous No Growth Day 1 Anaerobic Blood Culture - Preliminary No Growth Day 1 03/15/18 16:10 Stool Occult Blood (BRETT) - Final Stool Assess/Plan/Problems-Billing Assessment: Ms. Ruvalcaba is a 67yo female with a PMH for PTSD, HTN, Anxiety, who has been having issues with hematuria, fatigue, weight loss, low grade fevers and had a recent diagnosis of diverticulitis which was incompletely treated with antibiotics and has been having frequent diarrhea and has a new diagnosis of C. Diff and possible recurrent diverticulitis as well and new finding of uterine mass and cecal thickening. - Patient Problems (1) C. difficile colitis Current Visit: Yes Status: Acute Comment: - No BM for 48 hours - Resolving, afebrile and no leukocytosis - With recent antibiotic use for diverticulitis - Continue Vancomycin PO (2) HTN (hypertension) Current Visit: Yes Status: Acute Code(s): I10 - ESSENTIAL (PRIMARY) HYPERTENSION SNOMED Code(s): 36648988 Comment: - SBP 118-138 - Continue Bisoprolol and Amlodipine (3) Anxiety Current Visit: Yes Status: Acute Code(s): F41.9 - ANXIETY DISORDER, UNSPECIFIED SNOMED Code(s): 55140462 Comment: - Exacerbated by hospital setting - Lorazepam PRN (4) Asthma Current Visit: Yes Status: Acute Code(s): J45.909 - UNSPECIFIED ASTHMA, UNCOMPLICATED SNOMED Code(s): 979041313 Comment: - No signs of exacerbation - Continue Albuterol PRN (5) Knee pain, bilateral Current Visit: Yes Status: Acute Code(s): M25.561 - PAIN IN RIGHT KNEE; M25.562 - PAIN IN LEFT KNEE SNOMED Code(s): 66125181 Comment: - Bilat knee pain worse with ambulation - C/o pain in the joint area, no swelling or redness - states that this has been worse x 4 days - Continue tylenol as needed for pain and will add capsaicin cream for pain relief. (6) DVT prophylaxis Current Visit: Yes Status: Acute Code(s): LQQ6768 - SNOMED Code(s): 820559723 Comment: - Heparin SubQ (7) Full code status Current Visit: Yes Status: Acute Code(s): Z78.9 - OTHER SPECIFIED HEALTH STATUS SNOMED Code(s): 444037408 Status and Disposition: Inpatient. Discharge to home when medically stable. Possible discharge in the AM.
[2018-03-22] MEDS ORDERED: Capsaicin 0.025% CREAM* 60 GM TOPICAL PRN (18:04)
[2018-03-22] MEDS: traZODone TAB* 50 MG TAB PO SCH (21:05)
[2018-03-23] MEDS: traMADol TAB* 50 MG PO PRN (00:22)
[2018-03-23] MEDS: metroNIDAZOLE IV 500 MG/100ML* 500 MG/100 ML BAG IVPB SCH ×3 (00:35→17:02)
[2018-03-23] MEDS: Heparin VIAL(*) 5000 UNITS/ML VIAL (FIVE THOUSAND) SUBCUT SCH ×2 (05:49→12:21)
--- NOTE | 2018-03-23 07:29 | PN ---
Subjective Date of Service: 03/23/18 Interval History: Examined at the bedside, feeling much better . Denies chest pain or shortness of breath, continues to c/o bilat knee pain but improved from yesterday. Patient reports that she has been ambulating in the room with wheeled walked to use the bathroom, ambulated in the ni gait was steady but slow with wheeled walker. will require home PT for further strength building. Denies ABd pain, pain with solid BM today. Family History: Unchanged from Admission Social History: Unchanged from Admission Past Medical History: Unchanged from Admission Objective Active Medications: Acetaminophen (Tylenol Tab*) 650 mg PO Q4H PRN PRN Reason: FEVER/PAIN Last Admin: 03/22/18 21:06 Dose: 650 mg Albuterol (Ventolin Hfa Inhaler*) 2 puff INH Q4H PRN PRN Reason: SHORTNESS OF BREATH Amlodipine Besylate (Norvasc Tab*) 2.5 mg PO DAILY [facility] Last Admin: 03/22/18 08:18 Dose: 2.5 mg Bisoprolol Fumarate (Zebeta Tab*) 5 mg PO BID [facility] Last Admin: 03/22/18 21:06 Dose: 5 mg Capsaicin (Zostrix 0.025% Cream*) 1 applic TOPICAL QID PRN PRN Reason: PAIN Last Admin: 03/23/18 00:25 Dose: 1 applic Heparin Sodium (Porcine) (Heparin Vial(*)) 5,000 units SUBCUT Q8HR [facility] Last Admin: 03/23/18 05:49 Dose: 5,000 units Metronidazole/Sodium Chloride (Flagyl 500 Mg Ivpb*) 500 mg in 100 mls @ 100 mls /hr IVPB Q8H [facility] Last Admin: 03/23/18 00:35 Dose: 100 mls/hr Ceftriaxone Sodium 1 gm/ (Sodium Chloride) 50 mls @ 200 mls/hr IVPB Q24H [facility] Last Admin: 03/22/18 08:18 Dose: 200 mls/hr Lorazepam (Ativan Tab(*)) 0.5 mg PO Q4H PRN PRN Reason: ANXIETY Last Admin: 03/17/18 01:41 Dose: 0.5 mg Ondansetron HCl (Zofran Inj*) 4 mg IV Q6H PRN PRN Reason: NAUSEA Last Admin: 03/20/18 20:53 Dose: 4 mg Prochlorperazine Edisylate (Compazine Inj*) 10 mg IV Q6H PRN PRN Reason: NAUSEA Last Admin: 03/21/18 01:16 Dose: 10 mg Tramadol HCl (Ultram*) 50 mg PO Q8H PRN PRN Reason: PAIN Last Admin: 03/23/18 00:22 Dose: 50 mg Trazodone HCl (Desyrel Tab*) 50 mg PO BEDTIME [facility] Last Admin: 03/22/18 21:05 Dose: 50 mg Vancomycin HCl (Vancomycin Cap*) 125 mg PO QID [facility] Last Admin: 03/22/18 21:06 Dose: 125 mg Vital Signs - 8 hr 03/23/18 03/23/18 03/23/18 00:22 02:45 04:13 Temperature 99.4 F Pulse Rate 81 Respiratory 16 16 18 Rate Blood Pressure 116/54 (mmHg) O2 Sat by Pulse 98 Oximetry Oxygen Devices in Use Now: None Appearance: appears alert and comfortable restingin bed, no acute distress. Eyes: No Scleral Icterus Ears/Nose/Mouth/Throat: Clear Oropharnyx, Mucous Membranes Moist Neck: NL Appearance and Movements; NL JVP, Trachea Midline Respiratory: Symmetrical Chest Expansion and Respiratory Effort, Clear to Auscultation Cardiovascular: NL Sounds; No Murmurs; No JVD, No Edema Abdominal: NL Sounds; No Tenderness; No Distention Extremities: No Edema, No Clubbing, Cyanosis, - - no swelling or redness noted to bilat knees Skin: No Rash or Ulcers Neurological: Alert and Oriented x 3 Nutrition: Taking PO's Result Diagrams: 03/23/18 07:59 03/23/18 07:59 Additional Lab and Data: Microbiology and Other Data: Microbiology 03/15/18 16:10 Stool Gross Appearance - Final Stool Shiga Toxin I & II - Final Negative Shiga Toxin 1 & 2 C. difficile DNA Amplification - Final 027 Presumptive NEGATIVE Toxigenic C.diff POSITIVE Stool Lactoferrin - Final 03/15/18 10:43 Urine Culture - Final Urine 03/15/18 10:19 Aerobic Blood Culture - Preliminary Blood Venous No Growth Day 1 Anaerobic Blood Culture - Preliminary No Growth Day 1 03/15/18 09:39 Aerobic Blood Culture - Preliminary Blood Venous No Growth Day 1 Anaerobic Blood Culture - Preliminary No Growth Day 1 03/15/18 16:10 Stool Occult Blood (BRETT) - Final Stool Assess/Plan/Problems-Billing Assessment: Ms. Ruvalcaba is a 67yo female with a PMH for PTSD, HTN, Anxiety, who has been having issues with hematuria, fatigue, weight loss, low grade fevers and had a recent diagnosis of diverticulitis which was incompletely treated with antibiotics and has been having frequent diarrhea and has a new diagnosis of C. Diff and possible recurrent diverticulitis as well and new finding of uterine mass and cecal thickening. - Patient Problems (1) Abdominal pain Status: Acute Code(s): R10.9 - UNSPECIFIED ABDOMINAL PAIN SNOMED Code(s): 77854804 Comment: - Likely multifactorial. Recent diverticulitis with incomplete treatment with Cipro/Flagyl with signs of recurrent disease on CT abdomen - Patient also has cecal thickening and has been having constitutional symptoms for 9 months. Concern for IBD, GI consult indicates this is not likely but patient warrants outpatient colonoscopy on approximately 6 weeks. Also concern for possible colon cancer - Patient also has concerns for renal and uterine disease which may be contributing - Appreciate ID, GI and surgical consult - Continue flagyl po and ceftin for 7 more days starting today (end 03/29/18) (2) C. difficile colitis Status: Acute Comment: - No diarrhea - solid BM today - Resolving, afebrile - With recent antibiotic use for diverticulitis - Continue Vancomycin PO for 12 more days to continue 5 days after completing ( end 04/03/18) antibiotic treatment for diverticulitis (3) HTN (hypertension) Status: Acute Code(s): I10 - ESSENTIAL (PRIMARY) HYPERTENSION SNOMED Code(s) : 71149837 Comment: - SBP 118-138 - Continue Bisoprolol and Amlodipine (4) Anxiety Status: Acute Code(s): F41.9 - ANXIETY DISORDER, UNSPECIFIED SNOMED Code(s) : 36805077 Comment: - Exacerbated by hospital setting - Lorazepam PRN (5) Asthma Status: Acute Code(s): J45.909 - UNSPECIFIED ASTHMA, UNCOMPLICATED SNOMED Code(s): 007239523 Comment: - No signs of exacerbation - Continue Albuterol PRN (6) Knee pain, bilateral Status: Acute Code(s): M25.561 - PAIN IN RIGHT KNEE; M25.562 - PAIN IN LEFT KNEE SNOMED Code(s): 81375849 Comment: - Bilat knee pain worse with ambulation - C/o pain in the joint area, no swelling or redness - states that this has been worse x 4 days - Continue tylenol as needed for pain and will add capsaicin cream for pain relief. (7) DVT prophylaxis Status: Acute Code(s): GHH8252 - SNOMED Code(s): 773851260 Comment: - Heparin SubQ (8) Full code status Status: Acute Code(s): Z78.9 - OTHER SPECIFIED HEALTH STATUS SNOMED Code(s) : 570186742 Status and Disposition: discharge home
[2018-03-23] MEDS ORDERED: NS 0.9% 50 ML* 50 ML ONE (07:30)
[2018-03-23] MEDS: cefTRIAXone(*) 1 GM in NS 0.9% 50 ML* 50 ML IVPB SCH (07:39)
[2018-03-23 08:14] LABS: ABS Basophils 0.1 10^3/ul (0-0.2); ABS Eosinophils 0.2 10^3/ul (0-0.6); ABS Lymphocytes 2.2 10^3/ul (1.0-4.8); ABS Monocytes 1.2 10^3/ul (0-0.8); ABS Neutrophils 7.7 10^3/ul (1.5-7.7); ABS Nucleated RBC 0 10^3/ul; Hematocrit 35 % (35-47); Lymphocyte % 19.6 % (25-47); Mean Corpuscular HGB Conc 34 g/dl (31-36); Mean Corpuscular Hemoglobin 30 pg (27-31); Mean Corpuscular Volume 87 fL (80-97); Mean Platelet Volume 9.1 um3 (7.4-10.4); Nucleated Red Blood Cells % 0; Platelet Count 245 10^3/ul (150-450); Red Blood Count 4.06 10^6/ul (4.00-5.40); Red Cell Distribution Width 13 % (10.5-15); White Blood Count 11.4 10^3/ul (3.5-10.8)
[2018-03-23 08:30] LABS: EGFR Non-African American 99.7 (>60)
[2018-03-23] MEDS: Bisoprolol TAB* 5 MG PO SCH (09:13)
[2018-03-23] MEDS: Vancomycin CAP* 125 MG CAP PO SCH ×3 (09:13→17:06)
[2018-03-23] MEDS: amLODIPine TAB* 5 MG PO SCH (09:58)
[2018-03-23 11:45] VITALS: BP 124/67
[2018-03-23] MEDS: Acetaminophen TAB* 325 MG PO PRN ×2 (11:51→17:05)
--- NOTE | 2018-03-25 16:35 | DS ---
DISCHARGE SUMMARY: DATE OF ADMISSION: 03/15/18 DATE OF DISCHARGE: 03/23/18 PROVIDER: Jennifer Santana NP ATTENDING PHYSICIAN: Dr. Katie Arnold * (dictated by Jennifer Santana NP). PRIMARY CARE PROVIDER: Dr. Renetta Lewis. PRIMARY DIAGNOSES: 1. Clostridium difficile colitis. 2. Diverticulitis. 3. Hematuria. SECONDARY DIAGNOSES: 1. Hypertension. 2. Posttraumatic stress disorder. 3. Arrhythmias. 4. Anxiety. 5. Depression. 6. Asthma. 7. Chronic pain. STUDIES COMPLETED WHILE IN THE HOSPITAL: She had a CT of the abdomen and pelvis on 03/15/18. Radiologist's impression: 1. Mild thickening of the cecal tip and descending colon may reflect chronic changes, more focal and more prominent thickening of the sigmoid colon with numerous diverticula and perienteric stranding are consistent with acute diverticulitis. 2. Suspect mild intrahepatic ductal dilatation. She also had a transvaginal ultrasound. Radiologist's impression: Complex fluid within the endometrial cavity, consider short-term followup versus gynecological referral. She had a chest x-ray on 03/15/18. Radiologist's impression: 1. Stigmata for obstructive lung disease. 2. Minimal right basilar linear atelectasis. 3. No evidence of pneumonia. DISCHARGE MEDICATIONS: New home medications: 1. Ceftin 500 mg p.o. b.i.d. x7 days. 2. Flagyl 500 mg p.o. t.i.d. for 7 days. 3. Vancomycin 125 mg p.o. q.i.d. for 12 days. This is to continue 5 days after current Ceftin and Flagyl treatment. 4. Capsaicin cream apply topically to bilateral knees as needed for pain. 5. Tramadol 50 mg 1 tablet p.o. q.8 hours as needed for pain. Continued home medications: 1. Lidocaine 2.5% apply topically b.i.d. 2. Bisoprolol 5 mg p.o. b.i.d. 3. Amlodipine 2.5 mg p.o. daily. 4. Trazodone 50 to 100 mg at bedtime. 5. Albuterol HFA 2 puffs q.4 to 6 hours. HISTORY OF PRESENT ILLNESS AND HOSPITAL COURSE: Ms. Ruvalcaba is a 67-year-old female, who carries a past medical history of hypertension and PTSD. She has a history of arrhythmias, but is unsure what type; anxiety; depression; and history of chronic pain, who presented to the emergency room with complaints of abdominal pain. She states that approximately 4 to 5 weeks ago, she was diagnosed with diverticulitis and she has never had a colonoscopy, never had endoscopy. She states that she was started on Cipro and Flagyl and she has been having diarrhea intermittently with this. She says that the Flagyl she was not tolerating well. She also said she had dark and tarry stools, but after stopping the Flagyl that went away. She states that she has had intermittent abdominal cramping that has become much worse over the last several days and now she has more right-sided pain. She denies any vaginal discharge. Because of the diarrhea, she was going about every half an hour. Her appetite has diminished. She is feeling nauseous and she has been having lower abdominal cramping, which prompted her to come to the emergency room for further evaluation. While in the emergency room, she had CT of the abdomen and pelvis, which showed diverticulitis and inflammation near the cecum. She was going to be discharged from the emergency room, but spiked a fever of 102 and we were asked to evaluate her for admission. She was admitted to the hospital. She was continued on IV antibiotics throughout her hospitalization. She had consultation from Surgery, Gastroenterology and Infectious Disease. She was also found to have C. diff colitis during her hospitalization and was started on vancomycin. Her temperature ranged throughout her hospitalization between 97.7 to 100.1. On the day of discharge, the patient denies any abdominal pain. She states that she is feeling better. She had a formed bowel movement. She denies any nausea or vomiting. She complains of mild weakness and is ambulating with a walker. She will require home physical therapy for strength rebuilding and will require a walker for ambulation at home. She does complain of some bilateral knee arthritic pain. She does report significant improvement of her symptoms since admission to the hospital. At this time, Ms. Ruvalcaba is stable for discharge home. She will be discharged home today: Vital signs are as follows: Temperature was 99.4, respirations 16, O2 saturation was 95% on room air, blood pressure was 124/67, heart rate was 76. DISCHARGE PLAN: Ms. Ruvalcaba will be discharged home. Activity as tolerated. She should use a rolling walker to assist with ambulation. 1. Diverticulitis: She should continue on Ceftin 500 mg p.o. b.i.d. for 7 days. She should continue Flagyl 500 mg p.o. 3 times a day for 7 days. She will need to follow up with Gastroenterology in 6 weeks for a colonoscopy. She should continue on a soft diet and advance diet as tolerated. 2. C. diff colitis: She should continue on vancomycin 125 mg p.o. q.i.d. She should continue this 5 days after stopping Flagyl and Ceftin. She will be given a total of 12 more days of vancomycin for treatment of C. diff colitis. Again, she will need to follow up with Gastroenterology in 6 weeks for a colonoscopy as her CT scan did show cecal thickening and she has never had a colonoscopy. 3. Endometrial hyperplasia: She will need to follow up with [facility] for further evaluation and possible endometrial biopsy. She needs to have followup [facility] care with a Pap smear as well. 4. Hematuria: She should follow up with Urology as the patient was scheduled for a cystoscopy prior to admission to the hospital. She will need to continue to follow up for her hematuria. 5. Hypertension: She should continue her home medications as previously prescribed, amlodipine 2.5 mg and Zebeta 5 mg p.o. b.i.d. FOLLOWUP: She should follow up with her primary care provider in 4 to 7 days. She should follow up with [facility]. She should call to arrange for appointment. She needs to follow up with Gastroenterology in 6 weeks for a colonoscopy. She should call the office for an appointment in 6 weeks. She should follow up with Urology for her hematuria. She needs to call the office to arrange for rescheduling of her cystoscopy. The patient was instructed to return to the emergency room if she develops any severe lower abdominal pain, changes in her symptoms, black or tarry stools, or any other concerning symptoms, chest pain, shortness of breath. This is summarization of a complex hospitalization. For further details, please obtain her entire medical record. TIME SPENT: Time spent on this discharge was approximately 60 minutes, greater than half that time was spent with the patient discussing discharge plans and instructions. CONDITION ON DISCHARGE: Stable. I have discussed this with my attending, Dr. Katie Arnold, and she is in agreement with my plan. JENNIFER SANTAAN, COMPLIANCE AUDITOR [id number]/[facility] #: [id number] [facility]ITAL[facility]
== END 2018-03-23 17:40 | disposition home health service (06) | DRG 372 ==
LOC: ED 08:32 → SSU 16:44
PROVIDERS: ADMIT Hospitalist; ATTEND Student in an Organized Health Care Education/Training Program
DX: A04.72 Enterocolitis due to Clostridium difficile, not specified as recurrent (principal); K57.32 Diverticulitis of large intestine without perforation or abscess without bleeding; J98.11 Atelectasis; G89.29 Other chronic pain; I10 Essential (primary) hypertension; F43.10 Post-traumatic stress disorder, unspecified; F41.9 Anxiety disorder, unspecified; J45.909 Unspecified asthma, uncomplicated; F32.9 Major depressive disorder, single episode, unspecified; R31.0 Gross hematuria; N85.00 Endometrial hyperplasia, unspecified; K57.30 Diverticulosis of large intestine without perforation or abscess without bleeding; M17.0 Bilateral primary osteoarthritis of knee; Z88.0 Allergy status to penicillin; Z88.1 Allergy status to other antibiotic agents; Z88.5 Allergy status to narcotic agent; Z88.2 Allergy status to sulfonamides; Z88.8 Allergy status to other drugs, medicaments and biological substances; Z80.1 Family history of malignant neoplasm of trachea, bronchus and lung; Z80.41 Family history of malignant neoplasm of ovary; R23.2 Flushing; T36.0X5A Adverse effect of penicillins, initial encounter; R11.0 Nausea; R14.3 Flatulence; R42 Dizziness and giddiness
CPT/HCPCS: 36415; 71045; 74177; 76830; 80048; 80053; 81003; 81015; 82272; 82656; 83605; 83630; 83690; 83735; 84702; 85025; 85610; 86140; 86255; 86304; 86671; 87040; 87045; 87046; 87077; 87086; 87493; 87899; 90732; 93005; 99283; A9270-GY; G8978-GP-CM; G8979-GP-CJ; J0692; J0696; J0780; J1200; J1644; J1885; J2060; J2270; J2405; J2543; J2930; J3475; J3490; Q9967

== ENCOUNTER → 2018-08-03 07:43 | Day surgery (SDC) | payer MEDICARE ==
[~2018-08-03 07:43] MED LIST: Buffered Lidocaine 0.9% SYRIN* 5 ML/SYR SYRINGE INTRADERM ONE; Lactated Ringers 1000 ML Bag* 1,000 ML IV SCH; Lidocaine 2% PF * 5 ML VIAL ONE; Midazolam* 1 MG/ML 2 ML VIAL (2 MG) ONE; Naloxone* 0.4 MG/ML 1 ML VIAL IV PRN; Propofol* 10 MG/ML 20 ML BTL ONE; fentaNYL* 50 MCG/ML 2 ML VIAL (100 MCG VIAL) ONE
[2018-08-03 12:33] VITALS: BP 146/79
--- NOTE | 2018-08-03 22:30 | PRO ---
CC: Dr. Renetta Lewis* COLONOSCOPY REPORT: DATE OF PROCEDURE: 08/03/18 PRIMARY CARE PHYSICIAN: Dr. eRnetta Lewis. INDICATION FOR PROCEDURE: Diverticulosis, right lower quadrant abdominal pain. PROCEDURE PERFORMED: Complete colonoscopy to the terminal ileum with random biopsies. DESCRIPTION OF PROCEDURE: After the colonoscopy procedure, including the risks , benefits, and alternatives, with the risks not limited to perforation, surgery , missed lesions, and/or were explained to the patient, written informed consent was obtained. IV medication was given and a rectal exam was performed. The rectal exam was unremarkable. The adult Olympus colonoscope was then inserted into the patient's rectum and advanced very carefully through the entirety of the colon into the cecal base. The cecal base was normal in appearance. The terminal ileal valve was identified, intubated x5 to 6 cm and normal in appearance. Over the next 7 minutes, the scope was carefully withdrawn, inspecting the mucosa. I did take random biopsies throughout to rule out microscopic colitis. In addition, she had mild left-sided diverticulosis coli. On return to the rectum, the direct views were normal. On retroflexion, she had grade 1 internal hemorrhoids. The scope was then removed from the patient. She tolerated the procedure well. She returned to the recovery room in stable condition. The preparation was good. IMPRESSION: 1. Complete colonoscopy to the terminal ileum. 2. Random biopsies taken to rule out microscopic colitis. 3. Mild left-sided diverticulosis coli. 4. Grade 1 internal hemorrhoids. 5. Otherwise, normal colonoscopy exam. RECOMMENDATIONS: The pain is now resolved. At this point, we would recommend that she add fiber to her diet to help with her diverticulosis and to prevent any constipation. She is welcome to follow up with me if any ongoing symptomatology. Otherwise, we will plan on colonoscopy in 10 years unless symptoms are changed and family history occurs. [id number]/[facility] #: [id number] MTDD
== END | disposition home or self-care (01) ==
LOC: OR 07:43
PROVIDERS: ATTEND Internal Medicine Gastroenterology
DX: R10.31 Right lower quadrant pain (principal); K57.30 Diverticulosis of large intestine without perforation or abscess without bleeding; K64.0 First degree hemorrhoids; I10 Essential (primary) hypertension; J45.909 Unspecified asthma, uncomplicated; F43.10 Post-traumatic stress disorder, unspecified
CPT/HCPCS: 88305; J2250; J2704; J3010

== ENCOUNTER 2023-11-04 11:26 | Inpatient (IN) ==
[2023-11-04 12:00] LABS: ABS Basophils 0.1 10^3/uL (0.0-0.1); ABS Eosinophils 0.1 10^3/uL (0.0-0.5); ABS Lymphocytes 2.4 10^3/uL (1.0-4.8); ABS Monocytes 0.4 10^3/uL (0.0-0.9); ABS Neutrophils 3.9 10^3/uL (1.5-7.6); ABS Nucleated RBC 0.01 10^3/ul; Eosinophil % 1.6 %; Hematocrit 38.6 % (35-45); Hemoglobin 12.9 g/dL (11.5-14.3); Lymphocyte % 34.4 %; Mean Corpuscular Hemoglobin 29.1 pg (27-33); Mean Corpuscular Hgb Conc 33.5 g/dL (31-36); Mean Corpuscular Volume 86.8 fL (80-97); Mean Platelet Volume 8.4 fL (7.5-11.2); Nucleated Red Blood Cells % 0.2 %/100WBC (0.0-0.8); Platelet Count 250 10^3/uL (150-450); Red Blood Count 4.44 10^6/uL (3.63-4.92); Red Cell Distribution Width 13.3 % (12-17); White Blood Count 6.8 10^3/uL (3.8-11.8)
[2023-11-04 12:23] LABS: Albumin 4.1 g/dL (3.2-5.2); Albumin/Globulin Ratio 1.9 (1-3); Calcium 8.6 mg/dL (8.6-10.3); Creatinine, Serum 0.75 mg/dL (0.51-0.95); Globulin 2.2 g/dL (2-4); Potassium 3.7 mmol/L (3.5-5.0); Total Bilirubin 0.6 mg/dL (0.2-1.0); Total Protein 6.3 g/dL (6.4-8.9)
[2023-11-04 13:24] LABS: High Sensitivity Troponin 1 Hr 20 pg/mL (<15)
[2023-11-04] MEDS: Iohexol 350 (CONTRAST) 500 ML MDV IV ONE (14:38)
[2023-11-04 18:49] LABS: High Sensitivity Troponin 1 Hr 38 pg/mL (<15)
[2023-11-04 19:59] LABS: C Reactive Protein 2.26 mg/L (<8.01)
[2023-11-04] MEDS: Enoxaparin 40 MG/0.4 ML SYR SUBCUT SCH (22:16)
[2023-11-04] MEDS: CMCS:diPHENhydraMINE CREAM 2%(NF) 28 gm TUBE TOPICAL ONE (22:20)
[2023-11-04 22:23] LABS: Erythrocyte Sed Rate 7 mm/Hr (0-29)
[2023-11-05] MEDS ORDERED: Lorazepam PYXIS KEY PRN (00:44)
[2023-11-05] MEDS: diazePAM INJ CARPUJECT 5 MG/ML SYRINGE IV ONE (00:54)
[2023-11-05] MEDS ORDERED: diazePAM INJ CARPUJECT 5 MG/ML SYRINGE IV PRN (01:28)
[2023-11-05 01:31] LABS: Albumin 4.3 g/dL (3.2-5.2); Albumin/Globulin Ratio 1.7 (1-3); Calcium 9.4 mg/dL (8.6-10.3); Creatinine, Serum 0.91 mg/dL (0.51-0.95); Globulin 2.5 g/dL (2-4); Magnesium 2.1 mg/dL (1.9-2.7); Potassium 3.9 mmol/L (3.5-5.0); Total Bilirubin 0.7 mg/dL (0.2-1.0); Total Protein 6.8 g/dL (6.4-8.9); eGFR CKD-EPI 66.6 (>60)
[2023-11-05] MEDS: Lactated Ringers 1000 ml BAG 500 ML IV ONE (01:44)
[2023-11-05] MEDS: Lactated Ringers 1000 ml BAG 1,000 ML IV ONE (01:47)
[2023-11-05 01:50] LABS: ABS Basophils 0.1 10^3/uL (0.0-0.1); ABS Eosinophils 0.2 10^3/uL (0.0-0.5); ABS Lymphocytes 3.4 10^3/uL (1.0-4.8); ABS Monocytes 0.6 10^3/uL (0.0-0.9); ABS Neutrophils 4.2 10^3/uL (1.5-7.6); ABS Nucleated RBC 0.01 10^3/ul; Eosinophil % 2.1 %; Hematocrit 39.3 % (35-45); Hemoglobin 13.3 g/dL (11.5-14.3); Lymphocyte % 40.3 %; Mean Corpuscular Hemoglobin 29.5 pg (27-33); Mean Corpuscular Hgb Conc 33.9 g/dL (31-36); Mean Corpuscular Volume 86.9 fL (80-97); Mean Platelet Volume 8.9 fL (7.5-11.2); Nucleated Red Blood Cells % 0.1 %/100WBC (0.0-0.8); Platelet Count 255 10^3/uL (150-450); Red Blood Count 4.52 10^6/uL (3.63-4.92); Red Cell Distribution Width 13.5 % (12-17); White Blood Count 8.5 10^3/uL (3.8-11.8)
[2023-11-05 02:14] LABS: High Sensitivity Troponin 1 Hr 14 pg/mL (<15)
[2023-11-05] MEDS: LORazepam 2 mg VIAL 1 ml IV PUSH ONE (02:45)
[2023-11-05] MEDS: fentaNYL 100 mcg/2 ml 50 MCG/ML VIAL IV SLOW PU ONE (02:46)
[2023-11-05] MEDS: Aspirin EC 81 mg TAB.EC (enteric coated) PO SCH (08:56)
[2023-11-05 11:34] LABS: Urine Appearance Clear; Urine Bilirubin Negative (Negative); Urine Blood 1+ (Negative); Urine Color Colorless; Urine Glucose Negative (Negative); Urine Ketones Negative (Negative); Urine Nitrite Negative (Negative); Urine Protein Negative (Negative); Urine Specific Gravity 1.006 (1.002-1.030); Urine Urobilinogen Negative (Negative); Urine pH 5.5 (5.0-8.0)
[2023-11-05 11:41] LABS: Urine Bacteria 1+ /HPF (Absent); Urine Red Blood Cell Trace(0-2/hpf) /HPF (0-Trace); Urine Squamous Epithelial Cell Present /HPF (Absent); Urine White Blood Cell Trace(0-5/hpf) /HPF (0-Trace)
[2023-11-05] MEDS: diPHENhydraMINE CREAM 2%(NF) 28 gm TUBE TOPICAL ONE (21:15)
[2023-11-06] MEDS: diPHENhydraMINE CREAM 2%(NF) 28 gm TUBE TOPICAL ONE (04:47)
[2023-11-06] MEDS ORDERED: Magnesium Hydroxide LIQ 30 ML UDC PO PRN (09:32)
[2023-11-06] MEDS ORDERED: Senna TAB 8.6 mg TAB PO PRN (09:32)
[2023-11-06] MEDS ORDERED: Polyethylene Glycol 3350 17 GM PACKET PO PRN (09:32)
[2023-11-06] MEDS: CMCS:diPHENhydraMINE CREAM 2%(NF) 28 gm TUBE TOPICAL PRN (15:46)
[2023-11-06] MEDS: Magnesium Hydroxide LIQ 30 ML UDC PO SCH (21:11)
[2023-11-07] MEDS: NS 0.9% 1000 ml BAG 1,000 ML IV SCH ×2 (06:03→13:00)
[2023-11-07 06:23] LABS: ABS Basophils 0.1 10^3/uL (0.0-0.1); ABS Eosinophils 0.2 10^3/uL (0.0-0.5); ABS Lymphocytes 1.9 10^3/uL (1.0-4.8); ABS Monocytes 0.4 10^3/uL (0.0-0.9); ABS Neutrophils 3.6 10^3/uL (1.5-7.6); Eosinophil % 3.8 %; Hematocrit 37.2 % (35-45); Hemoglobin 12.7 g/dL (11.5-14.3); Lymphocyte % 31.1 %; Mean Corpuscular Hemoglobin 29.5 pg (27-33); Mean Corpuscular Hgb Conc 34.2 g/dL (31-36); Mean Corpuscular Volume 86.1 fL (80-97); Mean Platelet Volume 8.5 fL (7.5-11.2); Platelet Count 235 10^3/uL (150-450); Red Blood Count 4.32 10^6/uL (3.63-4.92); Red Cell Distribution Width 13.4 % (12-17); White Blood Count 6.2 10^3/uL (3.8-11.8)
[2023-11-07 07:00] LABS: Calcium 9.2 mg/dL (8.6-10.3); Creatinine, Serum 0.87 mg/dL (0.51-0.95); Magnesium 1.9 mg/dL (1.9-2.7); Potassium 4.2 mmol/L (3.5-5.0); eGFR CKD-EPI 70.3 (>60)
[2023-11-07] MEDS ORDERED: VERAPAMIL 2.5 MG/ML 2 ML VIAL ** 5 mg/2 ml ONE (10:40)
[2023-11-07] MEDS ORDERED: Heparin 2 UNITS/ML 1000 mls 2,000 ML IV ONE (10:41)
[2023-11-07] MEDS ORDERED: Heparin 1,000 UNIT/ML 10 ml (10,000 UNITS) CATHLAB/DIALYSIS ONE (10:41)
[2023-11-07] MEDS ORDERED: nitroGLYCERIN DRIP 25,000 MCG/250 ML BTL ONE (10:41)
[2023-11-07] MEDS ORDERED: Lidocaine 1% MPF 5 ML VIAL ONE (10:42)
[2023-11-07] MEDS ORDERED: Iohexol 350 (CONTRAST) 100 ML PAK IV ONE (10:42)
[2023-11-07] MEDS ORDERED: Midazolam 5 mg/5 ml VIAL 1 mg/ml 5 ml VIAL (5 mg) ONE (10:49)
[2023-11-07] MEDS ORDERED: fentaNYL 100 mcg/2 ml 50 MCG/ML VIAL ONE (10:49)
[2023-11-07] MEDS: Midazolam 10 mg/10 ml VIAL 1 mg/ml 10 ml VIAL (10 mg) IV SLOW PU ONE (16:21)
[2023-11-08 10:01] VITALS: BP 120/58
== END 2023-11-08 10:23 | disposition home or self-care (01) | DRG 287 ==
LOC: ED 11:26 → EDHOLD 11:26 → MEDTELE 16:39 → SUATTDRO 11-05 12:34
PROVIDERS: ADMIT Internal Medicine; ATTEND Internal Medicine